=== PATIENT | male | born 1955 | race Caucasian/White ===

== ENCOUNTER 2017-07-12 16:05 | Emergency (ER) | payer OTHER ==
[~2017-07-12] VITALS: Ht 172.7 cm; Wt 88.5 kg
[2017-07-12 16:15] VITALS: BP 138/86
[2017-07-12] MEDS ORDERED: LIDOCAINE 2% 20 ML VIAL. IJ ONE (16:30)
--- NOTE | 2017-07-12 16:33 | PHYS DOC ---
Past Medical History Past Medical History: CAD, High Cholesterol, Hypertension Past Surgical History: Angioplasty, Other Additional Past Surgical Histo: cardiac cath x 5 with 9 stents placed Alcohol Use: None Drug Use: None Adult General Chief Complaint Chief Complaint: ANIMAL BITE HPI HPI Patient is a 62 year old L presents to the emergency department with complaints of a dog bite to the left foot. Patient states that he was putting a shock color on his dog when she nipped at his hand and then began to bite his foot. Dog shots are up-to-date. He has had the dog since it was a puppy. The dog is 6 years old and patient reports that on to be otherwise healthy. Patient complains of a dog bite to the left foot. Review of Systems Review of Systems Constitutional: Denies fever or chills [] Musculoskeletal: Denies back pain or joint pain [] Integument: Dog Bite, laceration Neurologic: Denies headache, focal weakness or sensory changes [] Endocrine: Denies polyuria or polydipsia [] All other systems were reviewed and found to be within normal limits, except as documented in this note. Current Medications Current Medications Current Medications Medications (Trade) Dose Ordered Sig/Delma Start Time Stop Time Status Last Admin Dose Admin Diphtheria/ Tetanus/Acell Pertussis (Boostrix) 0.5 ml ONCE ONCE 07/12/17 16:45 07/12/17 16:46 DC 07/12/17 17:41 0.5 ML Lidocaine HCl 20 ml 1X ONCE 07/12/17 16:30 07/12/17 16:31 DC 07/12/17 17:42 20 ML Allergies Allergies Allergies Coded Allergies Type Severity Reaction Last Updated Verified No Known Drug Allergies 03/09/15 No Physical Exam Physical Exam Constitutional: Well developed, well nourished, no acute distress, non-toxic appearance. [] Skin: Warm, dry, left foot, dorsal aspect, proximal to the great and second toe there is a late laceration with total length of 5 cm. fourth toe does have a 1 cm superficial laceration to the lateral aspect. Toes neurovascular intact distal. Full range of motion of all toes without difficulty. Current Patient Data Vital Signs Vital Signs Date Time Temp Pulse Resp B/P (MAP) Pulse Ox O2 Delivery O2 Flow Rate FiO2 07/12/17 16:15 98.0 77 16 97 Room Air 98.0 EKG EKG [] Radiology/Procedures Radiology/Procedures [] Course & Med Decision Making Course & Med Decision Making Pertinent Labs and Imaging studies reviewed. (See chart for details) Procedure note: Wound anesthetized with 1% lidocaine, total of 8 mL. The wounds were cleansed with Betadine and copiously irrigated, explored for foreign body noted which are noted. Wound edges were approximated with a total of 11 simple interrupted sutures, 3-0 Ethilon. Patient tolerated procedure well. Wound was dressed with bulky bandage. Dragon Disclaimer Dragon Disclaimer This electronic medical record was generated, in whole or in part, using a voice recognition dictation system. Departure Departure Impression: Primary Impression: Dog bite Disposition: HOME, SELF-CARE Condition: STABLE Referrals: LENORA PARKER (PCP) Patient Instructions: Animal Bite, Wound Care, Fhsl-ig-Uhit Scripts Acetaminophen With Codeine (TYLENOL WITH CODEINE #3 TABLET) 1 Each Tablet 1 TAB PO PRN Q6HRS Y for PAIN, #20 TAB Prov: MALISSA PRAKASH APRN 07/12/17 Amoxicillin/Potassium Clav (AMOX TR-K CLV 875-125 MG TAB) 1 Each Tablet 1 TAB PO BID, #20 TAB Prov: MALISSA PRAKASH APRN 07/12/17 Problem Qualifiers Primary Impression: Dog bite Encounter type: initial encounter Qualified Codes: W54.0XXA - Bitten by dog , initial encounter MALISSA PRAKASH APRN Jul 12, 2017 16:33
[2017-07-12] MEDS ORDERED: DIPHTH,PERTUSS(ACELL),TET TOX 0.5 ML DISP.SYRIN. VAX IM ONE (16:45)
[2017-07-12] MEDS ORDERED: ACET-704 PO (17:38)
[2017-07-12] MEDS ORDERED: AMOX1TAB11 PO (17:38)
== END 2017-07-12 17:48 | disposition home or self-care (01) ==
LOC: ER 16:05
DX: S91.352A Open bite, left foot, initial encounter (principal); I25.10 Atherosclerotic heart disease of native coronary artery without angina pectoris; E78.00 Pure hypercholesterolemia, unspecified; I10 Essential (primary) hypertension; Z95.5 Presence of coronary angioplasty implant and graft; W54.0XXA Bitten by dog, initial encounter; Y93.89 Activity, other specified; Y92.89 Other specified places as the place of occurrence of the external cause; Y99.8 Other external cause status
CPT/HCPCS: 12002; 90471; 90715; 99283-25; J2001

== ENCOUNTER 2017-07-23 23:30 | Emergency (ER) | payer OTHER ==
[~2017-07-23 23:30] MED LIST: ACET-704 PO; AMOX1TAB11 PO
--- NOTE | 2017-07-23 23:36 | PHYS DOC ---
Past Medical History Past Medical History: CAD, High Cholesterol, Hypertension Past Surgical History: Angioplasty, Other Additional Past Surgical Histo: cardiac cath x 5 with 9 stents placed Alcohol Use: None Drug Use: None Adult General Chief Complaint Chief Complaint: SUTURE/STAPLE REMOVAL [facility] HPI Patient is a 62 year old male presents to the emergency department with request for suture removal from his left foot. Patient was evaluated in the emergency department on July 12 after he was bitten on the foot by his dog. The wounds were repaired, 11 simple erupted sutures total. Patient's no complaints Review of Systems Review of Systems Constitutional: Denies fever or chills [] Eyes: Denies change in visual acuity, redness, or eye pain [] HENT: Denies nasal congestion or sore throat [] Respiratory: Denies cough or shortness of breath [] Cardiovascular: No additional information not addressed in HPI [] GI: Denies abdominal pain, nausea, vomiting, bloody stools or diarrhea [] : Denies dysuria or hematuria [] Musculoskeletal: Denies back pain or joint pain [] Integument: sutures left foot Neurologic: Denies headache, focal weakness or sensory changes [] Endocrine: Denies polyuria or polydipsia [] All other systems were reviewed and found to be within normal limits, except as documented in this note. Allergies Allergies Allergies Coded Allergies Type Severity Reaction Last Updated Verified No Known Drug Allergies 03/09/15 No Physical Exam Physical Exam Constitutional: Well developed, well nourished, no acute distress, non-toxic appearance. [] Skin: Warm, dry, suture lines well approximated, mild erythema, nontender, no warmth. Full range of motion all digits, NVI Current Patient Data Vital Signs Vital Signs Date Time Temp Pulse Resp B/P (MAP) Pulse Ox O2 Delivery O2 Flow Rate FiO2 07/23/17 23:50 91 20 99 Room Air EKG EKG [] Radiology/Procedures Radiology/Procedures [] Course & Med Decision Making Course & Med Decision Making Pertinent Labs and Imaging studies reviewed. (See chart for details) Suture removal. Area cleansed with NS. Total 11 sutures removed. Wound dressed with neosporin and band aid. Pt tolerated well. [] Dragon Disclaimer Dragon Disclaimer This electronic medical record was generated, in whole or in part, using a voice recognition dictation system. Departure Departure Impression: Primary Impression: Visit for suture removal Disposition: HOME, SELF-CARE Condition: STABLE Referrals: LENORA PARKER (PCP) Patient Instructions: Suture Removal MALISSA PRAKASH APRN Jul 23, 2017 23:36
[2017-07-23 23:50] VITALS: BP 138/85
[2017-07-24] MEDS ORDERED: NEOMY/BACITR/POLYMYXIN OINT PACKET. TP ONE (00:30)
== END 2017-07-24 00:36 | disposition home or self-care (01) ==
LOC: ER 23:30
DX: S91.352D Open bite, left foot, subsequent encounter (principal); E78.00 Pure hypercholesterolemia, unspecified; I10 Essential (primary) hypertension; I25.10 Atherosclerotic heart disease of native coronary artery without angina pectoris; X58.XXXD Exposure to other specified factors, subsequent encounter; Y92.89 Other specified places as the place of occurrence of the external cause
CPT/HCPCS: 99282

== ENCOUNTER → 2020-02-14 | Outpatient (CLI) | payer OTHER, MEDICARE ==
[~2020-02-14] MED LIST changes: +REGADENOSON 0.4 MG/5 ML DISP.SYRIN. IV ONE
--- NOTE | 2020-02-14 14:31 | RAD ---
MR#: [id number] Date of Study: 02/14/2020 Ordering Physician: RAF STRICKLAND, Referring Physician: PERCY OSUNA Tech: RT Geovanni (R) (N) APPROVED REPORT Test Type: Pharmacological Stress Nurse/Tech: Kaia Petersen R.N. Test Indications: CAD, SOA Cardiac History: CAD, 9 stents, COPD, smoker,obese Medications: See Electronic Medical Record Medical History: See Electronic Medical Record Resting ECG: SR w/ occ. pvc Resting Heart Rate: 75 bpm Resting Blood Pressure: 97/48mmHg Pretest Chest Pain: No chest pain Nurse/Tech Notes S1S2, lungs CTA Consent: The procedure was explained to the patient in lay terms. Informed consent was witnessed. Yang eout was entered into [employer]. History and Stress Test performed by EMILY Whitfield Pharm. Details Pharmacologic stress testing was performed using 0.4mg per 5ml of regadenoson given intravenously ove r 7-10 seconds. Stress Symptoms unable to complete treadmill portion as pt was too SOA- had slight c/p scale 1.5/10 after pt sat down post treadmill attempt. pain resolved within 3 minutes-prior to start of lexiscan dose, post lexisc an pt had SOA, MODI POST EXERCISE Reason for Termination: Infusion complete Max HR: 95 bpm Max Blood Pressure: 118/66mmHg Blood Pressure response to exercise: Normal blood pressure response during stress. Heart Rate response to exercise: wnl Chest Pain: Yes. see above note Arrhythmia: No. PVC's at baseline ST Change: No. INTERPRETATION Stress EKG Conclusion: No evidence of stress induced EKG changes. Imaging Protocol IMAGE PROTOCOL: Rest Tc-99m/stress Tc-99m 1 day Rest: Stress: Viability: Radiopharm.Tc99m UlrqljgoaBu75s Sestamibi Okld47lYl 33mCi Duration 15min. 10min. Img Date 02/14/2020 02/14/2020 Inj-Img Nhdl60bhu. 60min. Rest Admin Site:IV - Left AntecubitalAdministrator:EMILY Whitfield Stress Admin Site: IV - Left AntecubitalAdministrator: EMILY Whitfield STRESS DATA End Diast. Vol.102.0mlLVEDV index BSA48.0ml End Syst. Vol.39.0mlLVESV index BSA18.0ml Myocardial Wjke885.0gEject. Liiuuihk69.0% Stress Scores Regional WT0.00Summed WT8.00 Regional WM0.00Summed WM3.00 LV Perfusion There is a small fixed distal anteroseptal defect suggestive of small prior infarct without active is chemia. There is also a moderate sized basal inferolateral defect suggestive of prior infarct without ischemia. Wall Motion Normal wall motion. EF 65% LV Perf. Quant 17 Seg. SSS6.00 17 Seg. SRS2.00 17 Seg. SDS4.00 Stress Defect Extent (% LAD)13.80Rest Defect Extent (% LAD)8.80Rev. Defect Extent (% LAD)5.60 Stress Defect Extent (% LCX) 30.00Rest Defect Extent (% LCX)7.50Rev. Defect Extent (% LCX)26.30 Stress Defect Extent (% RCA)0.00Rest Defect Extent (% RCA)6.70Rev. Defect Extent (% RCA)0.00 Stress Defect Extent (% AZEB)10.70Rest Defect Extent (% AZEB)5.70Rev. Defect Extent (% AZEB)7.00 Other Information Quality:Average Risk Assessment: Moderate Risk Conclusion 1. No evidence of stress induced EKG changes. 2. Poor exercise tolerance as patient unable to complete treadmill, had to be converted to chemical s tress. 3. Fixed distal anterior and basal inferior defects. 4. Normal EF at 65% 5. Moderate risk study Signed by : Fermín Edomnd, Electronically Approved : 02/14/2020 14:31:43
== END | disposition home or self-care (01) ==
LOC: NM 08:54
PROVIDERS: ATTEND Internal Medicine Cardiovascular Disease
DX: I25.10 Atherosclerotic heart disease of native coronary artery without angina pectoris (principal); I10 Essential (primary) hypertension; I48.91 Unspecified atrial fibrillation
CPT/HCPCS: 78452; 93017; A9500; J2785

== ENCOUNTER → 2020-04-18 | Outpatient (CLI) | payer OTHER, MEDICARE ==
[~2020-04-18] MED LIST changes: -REGADENOSON 0.4 MG/5 ML DISP.SYRIN. IV ONE
--- NOTE | 2020-04-18 14:11 | CARD ---
MR#: [id number] Date of Study: 04/18/2020 Ordering Physician: RAF STRICKLAND, Referring Physician: RAF STRICKLAND, Tech: Mya Rodriguez [facility] APPROVED REPORT EXAM: Two-dimensional and M-mode echocardiogram with Doppler and color Doppler. Other Information Quality : Fair INDICATION Dyspnea 2D DIMENSIONS Left Atrium(2D)3.7 (1.6-4.0cm)IVSd0.8 (0.7-1.1cm) Aortic Root(2D)3.0 (2.0-3.7cm)LVDd4.0 (3.9-5.9cm) LVOT Diameter2.3 (1.8-2.4cm)PWd0.8 (0.7-1.1cm) LVDs2.9 (2.5-4.0cm)FS (%) 29.0 % SV39.8 mlLVEF(%)56.3 (>50%) Aortic Valve AoV Peak Sean.138.4cm/sAoV VTI23.8cm AO Peak GR.7.7mmHgLVOT Peak Sean.123.7cm/s AO Mean GR.4mmHgAVA (VMAX)3.58cm2 STAS (VTI)3.34og7SQ P 1/2 Ukrm001fa Mitral Valve MV E Wubmhlre16.2cm/sMV DECEL YBHD370jr MV A Plxolokx662.7cm/sE/A Ratio0.5 Pulmonary Vein S1 Bddmiwsl51.3cm/sD2 Pitkhsuc87.6cm/s LEFT VENTRICLE The left ventricle is normal size. There is normal left ventricular wall thickness. The left ventricu lar systolic function is normal and the ejection fraction is within normal range. The Ejection Fracti on is 55-60%. There is normal LV segmental wall motion. Transmitral Doppler flow pattern is Grade I-a bnormal relaxation pattern. RIGHT VENTRICLE The right ventricle is normal size. The right ventricular systolic function is normal. ATRIA The left atrium size is normal. The right atrium size is normal. The interatrial septum is intact wit h no evidence for an atrial septal defect or patent foramen ovale as noted on 2-D or Doppler imaging. AORTIC VALVE The aortic valve is not well visualized but grossly appears to be trileaflet. Doppler and Color Flow revealed mild aortic regurgitation. There is no significant aortic valvular stenosis. MITRAL VALVE The mitral valve is normal in structure and function. There is no evidence of mitral valve prolapse. There is no mitral valve stenosis. Doppler and Color Flow revealed no mitral valve regurgitation note d. TRICUSPID VALVE The tricuspid valve is normal in structure and function. Doppler and Color Flow revealed no tricuspid valve regurgitation noted. There is no tricuspid valve stenosis. PULMONIC VALVE The pulmonic valve is not well visualized. Doppler and Color Flow revealed no pulmonic valvular regur gitation. There is no pulmonic valvular stenosis. GREAT VESSELS The aortic root is normal in size. The ascending aorta is not well seen. The IVC was not visualized. PERICARDIAL EFFUSION There is no evidence of significant pericardial effusion. Critical Notification Critical Value: No <Conclusion> The left ventricular systolic function is normal and the ejection fraction is within normal range. Th e Ejection Fraction is 55-60%. There is normal LV segmental wall motion. Signed by : Fermín Edmond, Electronically Approved : 04/18/2020 14:11:17
== END | disposition home or self-care (01) ==
LOC: ECHO 12:36
PROVIDERS: ATTEND Internal Medicine Cardiovascular Disease
DX: I35.1 Nonrheumatic aortic (valve) insufficiency (principal); R06.02 Shortness of breath
CPT/HCPCS: 93306

== ENCOUNTER 2021-01-01 15:44 | Emergency (ER) | payer MEDICARE, OTHER ==
[~2021-01-01] VITALS: Ht 172.7 cm; Wt 100.0 kg
[~2021-01-01 15:44] MED LIST changes: +ASPI-886 PO; +ATOR40TA59 PO; +CLOP75TA PO; +FAMO-63 PO; +METO25TA4 PO; +MUPI15CR8 TP
--- NOTE | 2021-01-01 21:54 | RAD ---
US DPLX ARTR EXTREM LOWER BILAT Indication: Reason: BLE redness swelling / Spl. Instructions: / History: Comparison: None. Procedure: Real-time grayscale, color flow Doppler, and Doppler spectral waveform analysis of the art erial system of the lower extremity is performed. Findings: Right lower extremity: Triphasic waveforms throughout the right lower extremity. Mildly elevated [place] within the right common femoral artery measures 174 cm/s. Mild atheromatous plaque. Left lower extremity: Triphasic waveform throughout the left lower extremity. No significant velocity elevation. Mild atheromatous plaque. IMPRESSION: 1. No arterial occlusion. 2. Mildly elevated velocity within the right common femoral artery, may indicate 30-49 percent steno sis. 3. Mild atheromatous plaque. Electronically signed by: Hola Rich DO (01/01/2021 9:52 PM) [facility]
--- NOTE | 2021-01-01 21:55 | RAD ---
US BILATERAL LOWEREXTREMITY VENOUS DOPPLER History: Reason: BLE redness swelling / Spl. Instructions: / History: Comparison: None. Discussion: Multiple longitudinal and transverse high resolution real-time images of the venous system of [facility] lower extremity were obtained with color and Doppler sampling. The common femoral, superficial fem oral, popliteal and proximal calf veins are all patent and demonstrate normal flow and compressibilit y. Normal respiratory phasicity and augmentation is present. Impression: 1. No evidence of deep vein thrombosis. Electronically signed by: Hola Rich DO (01/01/2021 9:52 PM) [facility]
--- NOTE | 2021-01-01 22:42 | PHYS DOC ---
Past Medical History Past Medical History: CAD, High Cholesterol, Hypertension, CO Past Surgical History: Angioplasty, Other Additional Past Surgical Histo: cardiac cath x 5 with 9 stents placed Smoking Status: Current Every Day Smoker Alcohol Use: None Drug Use: None General Adult EDM: Chief Complaint: LOWER EXTREMITY SWELLING HPI: HPI: Patient is a 65 year old male with history of CO, hypertension, CAD, high c holesterol, who presents to the ED today complaining of bilateral lower extremity swelling and redness, symptoms have been going on for 2 days. Patient states he has been painting his house and has been on his feet for more than normal. He is worried he is having no circulation to bilateral feet. He is currently on blood thinners Review of Systems: Review of Systems: Constitutional: Denies fever or chills. [] Eyes: Denies change in visual acuity. [] HENT: Denies nasal congestion or sore throat. [] Respiratory: Denies cough or shortness of breath. [] Cardiovascular: Denies chest pain or edema. [] GI: Denies abdominal pain, nausea, vomiting, bloody stools or diarrhea. [] : Denies dysuria. [] Musculoskeletal: Reports bilateral lower extremity swelling, redness, denies any back pain Integument: Denies rash. [] Neurologic: Denies headache, focal weakness or sensory changes. [] Psychiatric: Denies depression or anxiety. [] Heart Score: C/O Chest Pain: N/A Risk Factors: Risk Factors: DM, Current or recent (<one month) smoker, HTN, HLP, family history of CAD, obesity. Risk Scores: Score 0 - 3: 2.5% MACE over next 6 weeks - Discharge Home Score 4 - 6: 20.3% MACE over next 6 weeks - Admit for Clinical Observation Score 7 - 10: 72.7% MACE over next 6 weeks - Early Invasive Strategies Allergies: Allergies: Allergies Coded Allergies Type Severity Reaction Last Updated Verified No Known Drug Allergies 03/09/15 No Physical Exam: PE: Constitutional: Well developed, well nourished, no acute distress, non-toxic appearance. [] HENT: Normocephalic, atraumatic, bilateral external ears normal, oropharynx moist, no oral exudates, nose normal. [] Eyes: PERRLA, EOMI, conjunctiva normal, no discharge. [] Neck: Normal range of motion, no tenderness, supple, no stridor. [] Cardiovascular:Heart rate regular rhythm, no murmur [] Lungs & Thorax: Bilateral breath sounds clear to auscultation [] Abdomen: Bowel sounds normal, soft, no tenderness, no masses, no pulsatile masses. [] Skin: Warm, dry, no erythema, no rash. [] Back: No tenderness, no CVA tenderness. [] Extremities: No tenderness, no cyanosis, no clubbing, ROM intact, +1 edema to bilateral lower extremities, trace redness noted to bilateral toes. +2 bilateral pedal pulses, cap refill slightly delayed on the right toes but normal on the right toes Neurologic: Alert and oriented X 3, normal motor function, normal sensory function, no focal deficits noted. [] Psychologic: Affect normal, judgement normal, mood normal. [] Current Patient Data: Vital Signs: Vital Signs Date Time Temp Pulse Resp B/P (MAP) Pulse Ox O2 Delivery O2 Flow Rate FiO2 01/01/21 21:14 72 28 130/82 (98) 99 Nasal Cannula 2.0 01/01/21 18:15 97.9 97.9 EKG: EKG: [] Radiology/Procedures: Radiology/Procedures: []PROCEDURE: VENOUS LOWER EXT BILATERAL US BILATERAL LOWEREXTREMITY VENOUS DOPPLER History: Reason: BLE redness swelling / Spl. Instructions: / History: Comparison: None. Discussion: Multiple longitudinal and transverse high resolution real-time images of the venous system of bilateral lower extremity were obtained with color and Doppler sampling. The common femoral, superficial femoral, popliteal and proximal calf veins are all patent and demonstrate normal flow and compressibility. Normal respiratory phasicity and augmentation is present. Impression: 1. No evidence of deep vein thrombosis. Electronically signed by: Hola Gutierrez DO (01/01/2021 9:52 PM) [facility] DICTATED and SIGNED BY: HOLA GUTIERREZ DO DATE: 01/01/21 [id number] PROCEDURE: ARTERIAL STUDY LOWER EXT BI US DPLX ARTR EXTREM LOWER BILAT Indication: Reason: BLE redness swelling / Spl. Instructions: / History: Comparison: None. Procedure: Real-time grayscale, color flow Doppler, and Doppler spectral waveform analysis of the arterial system of the lower extremity is performed. Findings: Right lower extremity: Triphasic waveforms throughout the right lower extremity. Mildly elevated velocity within the right common femoral artery measures 174 cm/s. Mild atheromatous plaque. Left lower extremity: Triphasic waveform throughout the left lower extremity. No significant velocity elevation. Mild atheromatous plaque. IMPRESSION: 1. No arterial occlusion. 2. Mildly elevated velocity within the right common femoral artery, may indicate 30-49 percent stenosis. 3. Mild atheromatous plaque. Electronically signed by: Hola Gutierrez DO (01/01/2021 9:52 PM) [facility] DICTATED and SIGNED BY: HOLA GUTIERREZ DO DATE: 01/01/21 [id number] 0 Course & Med Decision Making: Course & Med Decision Making Pertinent Labs and Imaging studies reviewed. (See chart for details) This is a 65-year-old male patient presenting to the ED today complaining of bilateral lower extremity swelling, redness, symptoms since yesterday after spending longer. Of time painting his house. Patient is worried he has no circulation in his lower extremities. He has +2 pedal pulses bilaterally. Venous Doppler of bilateral lower extremities are negative. Arterial Dopplers of bilateral lower extremities were noted for stenosis of 30 to 49% on the right f common femoral artery. Mild atheromatous plaques Patient was discharged to home, follow-up with vascular. Compression stockings recommended. He is currently on a blood thinner. Encouraged to stay off his feet Dragon Disclaimer: Dragrachelle Disclaimer: This electronic medical record was generated, in whole or in part, using a voice recognition dictation system. Departure Departure Impression: Primary Impression: Stenosis of artery of left lower extremity Additional Impressions: Edema Qualified Codes: R60.9 - Edema, unspecified PVD (peripheral vascular disease) Disposition: 01 HOME / SELF CARE / HOMELESS Condition: STABLE Referrals: NO PCP (PCP) BASILIA MELGAR II, MD follow up in one week Patient Instructions: Edema, Itsz-ys-Pmcm, Peripheral Vascular Disease, Uhlj-xw-Flfg Additional Instructions: You were evaluated in the emergency room and noted to have stenosis on your right lower extremity and plaques. Please follow-up with your vascular surgeon as well your primary care doctor and cardiology PURA COOK APRN January 01, 2021 22:42
[2021-01-01 22:56] VITALS: BP 128/80
== END 2021-01-01 23:04 | disposition home or self-care (01) ==
LOC: ER 15:44
DX: I70.202 Unspecified atherosclerosis of native arteries of extremities, left leg (principal); E78.00 Pure hypercholesterolemia, unspecified; I10 Essential (primary) hypertension; I25.10 Atherosclerotic heart disease of native coronary artery without angina pectoris; I25.2 Old myocardial infarction; F17.200 Nicotine dependence, unspecified, uncomplicated; Z95.5 Presence of coronary angioplasty implant and graft
CPT/HCPCS: 93923; 93970; 99285-25

== ENCOUNTER 2021-08-13 17:19 | Inpatient (IN) | payer MEDICARE, OTHER ==
[~2021-08-13] VITALS: Ht 172.7 cm; Wt 111.1 kg
[~2021-08-13 17:19] MED LIST changes: +CALC200T3 PO; +FAMO40TA4 PO
[2021-08-13] MEDS ORDERED: NITROGLYCERIN SUBLINGUAL 0.4 MG BOTTLE OF 25. SL ONE (17:32)
[2021-08-13 17:38] LABS: BASO # 0.1 x10^3/uL (0.0-0.2); BASO % 1 % (0-3); EOS # 0.2 x10^3/uL (0.0-0.7); EOS % 4 % (0-3); HEMATOCRIT 41.5 % (39.0-53.0); HEMOGLOBIN 13.9 g/dL (13.0-17.5); LYMPH # 1.6 x10^3/uL (1.0-4.8); LYMPH % 31 % (24-48); MEAN CORPUSCULAR HEMOGLOBIN 29 pg (25-35); MEAN CORPUSCULAR HGB CONC 34 g/dL (31-37); MEAN CORPUSCULAR VOLUME 86 fL (79-100); MONO # 0.6 x10^3/uL (0.0-1.1); MONO % 11 % (0-9); NEUT # 2.8 x10^3/uL (1.8-7.7); NEUT % 53 % (31-73); PLATELET COUNT 256 x10^3/uL (140-400); RED BLOOD COUNT 4.83 x10^6/uL (4.30-5.70); RED CELL DISTRIBUTION WIDTH 13.9 % (11.5-14.5); WHITE BLOOD COUNT 5.3 x10^3/uL (4.0-11.0)
--- NOTE | 2021-08-13 17:44 | PHYS DOC ---
Past Medical History Past Medical History: CAD, High Cholesterol, Hypertension, CO Additional Past Medical Histor: NSTEMI,PVD Past Surgical History: Angioplasty, Other Additional Past Surgical Histo: cardiac cath x 5 with 9 stents placed Smoking Status: Current Every Day Smoker Alcohol Use: None Drug Use: None General Adult EDM: Chief Complaint: CHEST PAIN HPI: HPI: Patient is a 66 year old male who present to ER for evaluation of substernal chest pain that radiated to his arm. Symptoms started at 10 AM this morning. Patient denies any cough or fever, no trouble breathing. Patient denies history of coronary artery disease in the past, had multiple stents in the past. Patient is on blood thinner, plavix. Patient denies any recent travel operation. Patient is vaccinated for COVID-19. Patient denies any exposure to anybody with COVID-19 infection Review of Systems: Review of Systems: Constitutional: Denies fever or chills. [] Eyes: Denies change in visual acuity. [] HENT: Denies nasal congestion or sore throat. [] Respiratory: Denies cough or shortness of breath. [] Cardiovascular: Positive for chest pain, no edema GI: Denies abdominal pain, nausea, vomiting, bloody stools or diarrhea. [] : Denies dysuria. [] Musculoskeletal: Denies back pain or joint pain. [] Integument: Denies rash. [] Neurologic: Denies headache, focal weakness or sensory changes. [] Endocrine: Denies polyuria or polydipsia. [] Lymphatic: Denies swollen glands. [] Psychiatric: Denies depression or anxiety. [] Heart Score: C/O Chest Pain: Yes HEART Score for Chest Pain: HEART Score for Chest Pain Response (Comments) Value History Highly Suspicious 2 ECG Nonspecific Repolarizatio 1 Age > 65 2 Risk Factors >3 Risk Factors or Hx CAD 2 Troponin < Normal Limit 0 Total 7 Risk Factors: Risk Factors: DM, Current or recent (<one month) smoker, HTN, HLP, family history of CAD, obesity. Risk Scores: Score 0 - 3: 2.5% MACE over next 6 weeks - Discharge Home Score 4 - 6: 20.3% MACE over next 6 weeks - Admit for Clinical Observation Score 7 - 10: 72.7% MACE over next 6 weeks - Early Invasive Strategies Current Medications: Current Medications Medications (Trade) Dose Ordered Sig/Delma Start Time Stop Time Status Last Admin Dose Admin Nitroglycerin (Nitrostat) 0.4 mg STK-MED ONCE 08/13/21 17:32 08/13/21 17:32 DC Allergies: Allergies: Allergies Coded Allergies Type Severity Reaction Last Updated Verified No Known Drug Allergies 03/09/15 No Physical Exam: PE: Constitutional: Well developed, well nourished, no acute distress, non-toxic appearance. [] HENT: Normocephalic, atraumatic, bilateral external ears normal, oropharynx moist, no oral exudates, nose normal. [] Eyes: PERRLA, EOMI, conjunctiva normal, no discharge. [] Neck: Normal range of motion, no tenderness, supple, no stridor. [] Cardiovascular:Heart rate regular rhythm, no murmur [] Lungs & Thorax: Bilateral breath sounds clear to auscultation [] Abdomen: Bowel sounds normal, soft, no tenderness, no masses, no pulsatile masses. [] Skin: Warm, dry, no erythema, no rash. [] Back: No tenderness, no CVA tenderness. [] Extremities: No tenderness, no cyanosis, no clubbing, ROM intact, no edema. [] Neurologic: Alert and oriented X 3, normal motor function, normal sensory function, no focal deficits noted. [] Psychologic: Affect normal, judgement normal, mood normal. [] Current Patient Data: Labs: Laboratory Tests Test 08/13/21 17:25 White Blood Count 5.3 x10^3/uL Red Blood Count 4.83 x10^6/uL Hemoglobin 13.9 g/dL Hematocrit 41.5 % Mean Corpuscular Volume 86 fL Mean Corpuscular Hemoglobin 29 pg Mean Corpuscular Hemoglobin Concent 34 g/dL Red Cell Distribution Width 13.9 % Platelet Count 256 x10^3/uL Neutrophils (%) (Auto) 53 % Lymphocytes (%) (Auto) 31 % Monocytes (%) (Auto) 11 % Eosinophils (%) (Auto) 4 % Basophils (%) (Auto) 1 % Neutrophils # (Auto) 2.8 x10^3/uL Lymphocytes # (Auto) 1.6 x10^3/uL Monocytes # (Auto) 0.6 x10^3/uL Eosinophils # (Auto) 0.2 x10^3/uL Basophils # (Auto) 0.1 x10^3/uL Sodium Level 139 mmol/L Potassium Level 4.0 mmol/L Chloride Level 103 mmol/L Carbon Dioxide Level 29 mmol/L Anion Gap 7 Blood Urea Nitrogen 13 mg/dL Creatinine 0.8 mg/dL Estimated GFR (Cockcroft-Gault) 96.7 BUN/Creatinine Ratio 16 Glucose Level 160 mg/dL Calcium Level 8.8 mg/dL Magnesium Level 2.0 mg/dL Total Bilirubin 0.2 mg/dL Aspartate Amino Transf (AST/SGOT) 33 U/L Alanine Aminotransferase (ALT/SGPT) 56 U/L Alkaline Phosphatase 155 U/L Troponin I High Sensitivity 36 ng/L KR-Epv-M-Type Natriuretic Peptide 355 pg/mL Total Protein 7.7 g/dL Albumin 3.5 g/dL Albumin/Globulin Ratio 0.8 Lipase 66 U/L Current Medications Medications (Trade) Dose Ordered Sig/Delma Route PRN Reason Start Time Stop Time Status Last Admin Dose Admin Nitroglycerin (Nitrostat) 0.4 mg PRN Q5MIN PRN SL CHEST PAIN 08/13/21 17:45 08/13/21 17:30 Nitroglycerin (Nitrostat) 0.4 mg STK-MED ONCE SL 08/13/21 17:32 08/13/21 17:32 DC Laboratory Tests Test 08/13/21 17:25 White Blood Count 5.3 x10^3/uL Red Blood Count 4.83 x10^6/uL Hemoglobin 13.9 g/dL Hematocrit 41.5 % Mean Corpuscular Volume 86 fL Mean Corpuscular Hemoglobin 29 pg Mean Corpuscular Hemoglobin Concent 34 g/dL Red Cell Distribution Width 13.9 % Platelet Count 256 x10^3/uL Neutrophils (%) (Auto) 53 % Lymphocytes (%) (Auto) 31 % Monocytes (%) (Auto) 11 % Eosinophils (%) (Auto) 4 % Basophils (%) (Auto) 1 % Neutrophils # (Auto) 2.8 x10^3/uL Lymphocytes # (Auto) 1.6 x10^3/uL Monocytes # (Auto) 0.6 x10^3/uL Eosinophils # (Auto) 0.2 x10^3/uL Basophils # (Auto) 0.1 x10^3/uL Sodium Level 139 mmol/L Potassium Level 4.0 mmol/L Chloride Level 103 mmol/L Carbon Dioxide Level 29 mmol/L Anion Gap 7 Blood Urea Nitrogen 13 mg/dL Creatinine 0.8 mg/dL Estimated GFR (Cockcroft-Gault) 96.7 BUN/Creatinine Ratio 16 Glucose Level 160 mg/dL Calcium Level 8.8 mg/dL Magnesium Level 2.0 mg/dL Total Bilirubin 0.2 mg/dL Aspartate Amino Transf (AST/SGOT) 33 U/L Alanine Aminotransferase (ALT/SGPT) 56 U/L Alkaline Phosphatase 155 U/L Troponin I High Sensitivity 36 ng/L XO-Mew-F-Type Natriuretic Peptide 355 pg/mL Total Protein 7.7 g/dL Albumin 3.5 g/dL Albumin/Globulin Ratio 0.8 Lipase 66 U/L Current Medications Medications (Trade) Dose Ordered Sig/Delma Route PRN Reason Start Time Stop Time Status Last Admin Dose Admin Nitroglycerin (Nitrostat) 0.4 mg PRN Q5MIN PRN SL CHEST PAIN 08/13/21 17:45 08/13/21 17:30 Nitroglycerin (Nitrostat) 0.4 mg STK-MED ONCE SL 08/13/21 17:32 08/13/21 17:32 DC Vital Signs: Vital Signs Date Time Temp Pulse Resp B/P (MAP) Pulse Ox O2 Delivery O2 Flow Rate FiO2 08/13/21 17:30 92 192/108 EKG: EKG: EKG was done at 1724, heart rate of 95 bpm, sinus rhythm, no ST segment elevation. Radiology/Procedures: Radiology/Procedures: [] Course & Med Decision Making: Course & Med Decision Making Pertinent Labs and Imaging studies reviewed. (See chart for details) Patient is a 66-year-old male who present to ER due to chest pain, patient does have history of coronary disease, first EKG was done at 1724, heart rate 95 bpm, sinus rhythm, no ST segment elevation appreciated. Second EKG was done at 1744, heart rate of 91 bpm, sinus rhythm, there is some ST segment elevation in lead II and I, I discussed with the mid level provider nuclear fuels reclamation engineer, Dr. PRICE who did review the EKG and did not think that patient met criteria for STEMI. He recommended admit patient to the hospital, start patient on heparin protocol. Discussed with Dr. Polanco who agreed to admit the patient. Dragon Disclaimer: Dragon Disclaimer: This electronic medical record was generated, in whole or in part, using a voice recognition dictation system. Departure Departure Impression: Primary Impression: Chest pain Additional Impression: Acute coronary syndrome Disposition: ADMITTED INPATIENT Admitting Physician: DAYRON (DR. POLANCO) Condition: IMPROVED Referrals: NO PCP (PCP) ANGELIA FREDERICK DO Aug 13, 2021 17:44
[2021-08-13] MEDS ORDERED: NITROGLYCERIN SUBLINGUAL 0.4 MG BOTTLE OF 25. SL PRN (17:45)
[2021-08-13 17:49] LABS: CALCIUM 8.8 mg/dL (8.5-10.1); CREATININE 0.8 mg/dL (0.7-1.3); GFR 96.7
[2021-08-13 17:55] LABS: ALBUMIN 3.5 g/dL (3.4-5.0); ALBUMIN/GLOBULIN RATIO 0.8 (1.0-1.7); TOTAL BILIRUBIN 0.2 mg/dL (0.2-1.0); TOTAL PROTEIN 7.7 g/dL (6.4-8.2)
--- NOTE | 2021-08-13 18:08 | RAD ---
Single AP view of the chest. Comparison: 03/23/2021. Indication: Chest pain Findings: The heart is enlarged but stable. There is no pneumothorax or effusion. No air space or interstitial disease. Impression: 1. No acute cardiopulmonary process. Electronically signed by: Richar Rendon MD (08/13/2021 6:05 PM) [facility]
[2021-08-13] MEDS ORDERED: HEPARIN for IV BOLUS 10,000 UNIT/10 ML VIAL. IV PRN (18:15)
[2021-08-13] MEDS ORDERED: HEPARIN for IV BOLUS 10,000 UNIT/10 ML VIAL. IV ONE (18:15)
--- NOTE | 2021-08-13 18:16 | PDOC1 ---
History and Physical Date of Admission Date of Admission DATE: 08/13/21 TIME: 18:15 Identification/Chief Complaint Chief Complaint Chest pain Source Source: Patient History of Present Illness History of Present Illness Mr Noland is a 66 year old male with PMHx CAD (s/p cath x5 with 9 stents), HLD, HTN, PVD, smoker who presents to ED c/o sub-sternal chest pain that radiates down both of his arms that began at 1645 while at rest and was continuous, He notes this was similar to prior DC. He experienced some discomfort at 1000 this morning but it resolved on its own. He does intermittently experience anginal pain but it is generally remitting without treatment 1-3 times per month. Patient denies any cough or fever, no trouble breathing. Patient is vaccinated for COVID-19. He does continue to smoke. Chest radiograph with cardiomegaly, otherwise no acute abnormalities. EKG heart rate of 95 bpm, sinus rhythm, no ST segment elevation. Second EKG was done at 1744, heart rate of 91 bpm, sinus rhythm, there is some ST segment elevation in lead II and I. Labs with WBC 5.3, Hb 13.9, platelets 256, INR 0.9, PTT 32, NA 139, K4, BUN 13, CR 0.8, glucose 160, calcium 8.8, Magnesium 2, alkaline phosphatase 135 lipase 66 otherwise LFTs within normal laboratory limits, NT proBNP is 335, high- sensitivity troponin was 36. Given NTG x3 with improvement in pain from 8/10 to 2/10 and started on heparin GTT and admitted for further care. Past Medical History Cardiovascular: CAD, CHF, HTN, Hyperlipidemia Past Surgical History Past Surgical History: Other Family History Family History: Coronary Artery Disease, High Cholestrol, Hypertension Social History Smoke: <1 pack per day ALCOHOL: none Drugs: None Current Problem List Problem List Problems Medical Problems: (1) Acute coronary syndrome Status: Acute (2) Chest pain Status: Acute Current Medications Current Medications Current Medications Nitroglycerin (Nitrostat) 0.4 mg PRN Q5MIN PRN SL CHEST PAIN Last administered on 08/13/21at 17:30; Start 08/13/21 at 17:45 Nitroglycerin (Nitrostat) 0.4 mg STK-MED ONCE SL ; Start 08/13/21 at 17:32; Stop 08/13/21 at 17:32; Status DC Heparin Sodium (Porcine) (Heparin Sodium) 4,000 unit 1X ONCE IV ; Start 08/13/21 at 18:15; Stop 08/13/21 at 18:16 Heparin Sodium/ Dextrose 250 ml @ 12.24 mls/ hr CONT PRN IV PER PROTOCOL; Start 08/13/21 at 18:15 Heparin Sodium (Porcine) (Heparin Sodium) 2,550 unit PRN Q6HRS PRN IV FOR UFH LEVEL LESS THAN 0.2; Start 08/13/21 at 18:15 Active Scripts Active Clopidogrel (Clopidogrel Bisulfate) 75 Mg Tablet 75 Mg PO DAILYWBKFT Aspirin Ec (Aspirin) 81 Mg Tablet.dr 81 Mg PO DAILYWBKFT 90 Days Reported Famotidine 40 Mg Tablet 40 Mg PO PRN DAILY PRN Tums (Calcium Carbonate) 200 Mg Tab.chew 200 Mg PO PRN 1-2XD PRN Atorvastatin Calcium 40 Mg Tablet 1 Tab PO DAILY Metoprolol Tartrate 25 Mg Tablet 1 Tab PO BID Allergies Allergies: Coded Allergies: No Known Drug Allergies (Unverified , 03/09/15) ROS General: YES: Fatigue, Malaise; No: Chills, Night Sweats, Appetite, Other PSYCHOLOGICAL ROS: YES: Anxiety; No: Behavioral Disorder, Concentration difficultie, Decreased libido, Depression, Disorientation, Hallucinations, Hostility, Irritablity, Memory difficulties, Mood Swings, Obsessive thoughts, Physical abuse, Sexual abuse, Sleep disturbances, Suicidal ideation, Other Eyes: No Blurry vision, No Decreased vision, No Double vision, No Dry eyes, No Excessive tearing, No Eye Pain, No Itchy Eyes, No Loss of vision, No Phot ophobia, No Scotomata, No Uses contacts, No Uses glasses, No Other HEENT: No: Heacaches, Visual Changes, Hearing change, Nasal congestion, Nasal discharge, Oral lesions, Sinus pain, Sore Throat, Epistaxis, Sneezing, Snoring, Tinnitus, Vertigo, Vocal changes, Other ALLERGY AND IMMUNOLOGY: No: Hives, Insect Bite Sensitivity, Itchy/Watery Eyes, Nasal Congestion, Post Nasal Drip, Seasonal Allergies, Other Hematological and Lymphatic: No: Bleeding Problems, Blood Clots, Blood Transfusions, Brusing, Night Sweats, Pallor, Swollen Lymph Nodes, Other ENDOCRINE: No: Breast Changes, Galactorrhea, Hair Pattern Changes, Hot Flashes, Malaise/lethargy, Mood Swings, Palpitations, Polydipsia/polyuria, Skin Changes, Temperature Intolerance, Unexpected Weight Changes, Other Breast: No New/Changing Breast Lumps, No Nipple changes, No Nipple discharge, No Other Respiratory: YES: Shortness of breath; No: Cough, Hemoptysis, Orthopnea, Pleuritic Pain, SOB with excertion, Sputum Changes, Stridor, Tachypnea, Wheezing, Other Cardiovascular: yes Chest Pain; No Palpitations, No Orthopnea, No Paroxysmal Noc. Dyspnea, No Edema, No Lt Headedness, No Other Gastrointestinal: Yes Nausea; No Vomiting, No Abdominal Pain, No Diarrhea, No Constipation, No Melena, No Hematochezia, No Other Genitourinary: No Dysuria, No Frequency, No Incontinence, No Hematuria, No Retention, No Discharge, No Urgency, No Pain, No Flank Pain, No Other, No , No , No , No , No , No , No Musculoskeletal: No Gait Disturbance, No Joint Pain, No Joint Stiffness, No Joint Swelling, No Muscle Pain, No Muscular Weakness, No Pain In:, No Swelling In:, No Other Neurological: No Behavorial Changes, No Bowel/Bladder ControlChng, No Confusion, No Dizziness, No Gait Disturbance, No Headaches, No Impaired Coord/balance, No Memory Loss, No Numbness/Tingling, No Seizures, No Speech Problems, No Tremors, No Visual Changes, No Weakness, No Other Skin: No Dry Skin, No Eczema, No Hair Changes, No Lumps, No Mole Changes, No Mottling, No Nail Changes, No Pruritus, No Rash, No Skin Lesion Changes, No Other, No Acne Physical Exam General: Alert, Oriented X3, Cooperative, moderate distress HEENT: Atraumatic, PERRLA, EOMI, Mucous membr. moist/pink Lungs: Clear to auscultation, Normal air movement Heart: S1S2, RRR, no thrills, no rubs, no gallops, no murmurs Abdomen: Normal bowel sounds, Soft, No tenderness, No hepatosplenomegaly, No masses Rectal Exam: not examined Extremities: No clubbing, No cyanosis, No edema, Normal pulses, No tenderness/swelling Skin: No rashes, No breakdown, No significant lesion Neuro: Normal gait, Normal speech, Strength at 5/5 X4 ext, Normal tone, Sensation intact, Cranial nerves 3-12 NL, Reflexes 2+ Psych/Mental Status: Mental status NL, Mood NL Vitals Vitals Vital Signs Date Time Temp Pulse Resp B/P (MAP) Pulse Ox O2 Delivery O2 Flow Rate FiO2 08/13/21 17:30 92 192/108 08/13/21 17:19 97.7 18 100 Room Air 97.7 Labs Labs Laboratory Tests Test 08/13/21 17:25 White Blood Count 5.3 x10^3/uL (4.0-11.0) Red Blood Count 4.83 x10^6/uL (4.30-5.70) Hemoglobin 13.9 g/dL (13.0-17.5) Hematocrit 41.5 % (39.0-53.0) Mean Corpuscular Volume 86 fL (79-100) Mean Corpuscular Hemoglobin 29 pg (25-35) Mean Corpuscular Hemoglobin Concent 34 g/dL (31-37) Red Cell Distribution Width 13.9 % (11.5-14.5) Platelet Count 256 x10^3/uL (140-400) Neutrophils (%) (Auto) 53 % (31-73) Lymphocytes (%) (Auto) 31 % (24-48) Monocytes (%) (Auto) 11 % (0-9) Eosinophils (%) (Auto) 4 % (0-3) Basophils (%) (Auto) 1 % (0-3) Neutrophils # (Auto) 2.8 x10^3/uL (1.8-7.7) Lymphocytes # (Auto) 1.6 x10^3/uL (1.0-4.8) Monocytes # (Auto) 0.6 x10^3/uL (0.0-1.1) Eosinophils # (Auto) 0.2 x10^3/uL (0.0-0.7) Basophils # (Auto) 0.1 x10^3/uL (0.0-0.2) Sodium Level 139 mmol/L (136-145) Potassium Level 4.0 mmol/L (3.5-5.1) Chloride Level 103 mmol/L (98-107) Carbon Dioxide Level 29 mmol/L (21-32) Anion Gap 7 (6-14) Blood Urea Nitrogen 13 mg/dL (8-26) Creatinine 0.8 mg/dL (0.7-1.3) Estimated GFR (Cockcroft-Gault) 96.7 BUN/Creatinine Ratio 16 (6-20) Glucose Level 160 mg/dL (70-99) Calcium Level 8.8 mg/dL (8.5-10.1) Magnesium Level 2.0 mg/dL (1.8-2.4) Total Bilirubin 0.2 mg/dL (0.2-1.0) Aspartate Amino Transf (AST/SGOT) 33 U/L (15-37) Alanine Aminotransferase (ALT/SGPT) 56 U/L (16-63) Alkaline Phosphatase 155 U/L (46-116) Troponin I High Sensitivity 36 ng/L (4-75) WP-Eqc-Z-Type Natriuretic Peptide 355 pg/mL (0-124) Total Protein 7.7 g/dL (6.4-8.2) Albumin 3.5 g/dL (3.4-5.0) Albumin/Globulin Ratio 0.8 (1.0-1.7) Lipase 66 U/L (73-393) Laboratory Tests Test 08/13/21 17:25 White Blood Count 5.3 x10^3/uL (4.0-11.0) Red Blood Count 4.83 x10^6/uL (4.30-5.70) Hemoglobin 13.9 g/dL (13.0-17.5) Hematocrit 41.5 % (39.0-53.0) Mean Corpuscular Volume 86 fL (79-100) Mean Corpuscular Hemoglobin 29 pg (25-35) Mean Corpuscular Hemoglobin Concent 34 g/dL (31-37) Red Cell Distribution Width 13.9 % (11.5-14.5) Platelet Count 256 x10^3/uL (140-400) Neutrophils (%) (Auto) 53 % (31-73) Lymphocytes (%) (Auto) 31 % (24-48) Monocytes (%) (Auto) 11 % (0-9) Eosinophils (%) (Auto) 4 % (0-3) Basophils (%) (Auto) 1 % (0-3) Neutrophils # (Auto) 2.8 x10^3/uL (1.8-7.7) Lymphocytes # (Auto) 1.6 x10^3/uL (1.0-4.8) Monocytes # (Auto) 0.6 x10^3/uL (0.0-1.1) Eosinophils # (Auto) 0.2 x10^3/uL (0.0-0.7) Basophils # (Auto) 0.1 x10^3/uL (0.0-0.2) Sodium Level 139 mmol/L (136-145) Potassium Level 4.0 mmol/L (3.5-5.1) Chloride Level 103 mmol/L (98-107) Carbon Dioxide Level 29 mmol/L (21-32) Anion Gap 7 (6-14) Blood Urea Nitrogen 13 mg/dL (8-26) Creatinine 0.8 mg/dL (0.7-1.3) Estimated GFR (Cockcroft-Gault) 96.7 BUN/Creatinine Ratio 16 (6-20) Glucose Level 160 mg/dL (70-99) Calcium Level 8.8 mg/dL (8.5-10.1) Magnesium Level 2.0 mg/dL (1.8-2.4) Total Bilirubin 0.2 mg/dL (0.2-1.0) Aspartate Amino Transf (AST/SGOT) 33 U/L (15-37) Alanine Aminotransferase (ALT/SGPT) 56 U/L (16-63) Alkaline Phosphatase 155 U/L (46-116) Troponin I High Sensitivity 36 ng/L (4-75) CG-Iyn-D-Type Natriuretic Peptide 355 pg/mL (0-124) Total Protein 7.7 g/dL (6.4-8.2) Albumin 3.5 g/dL (3.4-5.0) Albumin/Globulin Ratio 0.8 (1.0-1.7) Lipase 66 U/L (73-393) Images Images Chest radiograph: The heart is enlarged but stable. There is no pneumothorax or effusion. No air space or interstitial disease. Impression: 1. No acute cardiopulmonary process. VTE Prophylaxis Ordered VTE Prophylaxis Devices: Yes VTE Pharmacological Prophylaxi: Yes Assessment/Plan Assessment/Plan A/P: Chest pain - with repeat EKG showing changes, will cont heparin GTT, trend troponins. consult cardiology. Smoking cessation emphasized. Will give nitropaste q6hrs for unstable angina. Protonix for GI PPX CAD - s/p cath x5 with 9 stents - high risk repeat DC HLD - statin HTN - metoprolol, nitropaste PVD - on ASA, plavix Smoker - counseled on cessation FEN - NPO PPX - heparin FULL CODE Dispo - inpatient CVC for unstable angina Justifications for Admission Other Justification GENA LUNA MD Aug 13, 2021 18:16
[2021-08-13 18:23] LABS: PROTHROMBIN TIME PATIENT 11.8 SEC (11.7-14.0)
[2021-08-13] MEDS ORDERED: MORPHINE SULFATE 2 MG/ML INJ. IVP PRN (18:30)
[2021-08-13] MEDS ORDERED: ONDANSETRON PF 4 MG/2 ML VIAL. IVP PRN ×2 (18:30→21:30)
[2021-08-13] MEDS: HEPARIN 25,000UTS/250ML PREMIX 250 ML IV PRN (18:51)
[2021-08-13] MEDS ORDERED: NITROGLYCERIN OINT 1 GM PACKET. TP ONE (19:45)
[2021-08-13] MEDS ORDERED: PANTOPRAZOLE 40 MG TABLET.DR. PO ONE (20:29)
[2021-08-13] MEDS: PANTOPRAZOLE 40 MG TABLET.DR. PO SCH (20:35)
[2021-08-13] MEDS ORDERED: ACETAMINOPHEN 325 MG TABLET. PO PRN (21:30)
[2021-08-13] MEDS: METOPROLOL TART IMMED RELEASE 25 MG TABLET. PO SCH (22:00)
[2021-08-13] MEDS: ATORVASTATIN CALCIUM 40 MG TABLET. PO SCH (22:00)
[2021-08-13 23:10] VITALS: BP 121/78
[2021-08-14] VITALS (18 sets, daily range): BP systolic 99–141; BP diastolic 54–82
[2021-08-14] MEDS: fentaNYL PF VIAL 100 MCG/2 ML VIAL IVP PRN ×4 (00:10→19:59)
--- NOTE | 2021-08-14 02:02 | EKG ---
[facility] [address] [place] [address] Test Date: 2021-08-13 Test Time: 17:44:41 Pat Name: MICHAEL MEZA Department: Room: [facility] Gender: M Dent Remover: : 1955 Requested By: ANGELIA FREDERICK Order Number: [id number] Reading MD: Eleno Critsina Measurements Intervals [place] Rate: 91 P: 139 GA: 154 QRS: -145 QRSD: 106 T: 126 QT: 368 QTc: 454 Interpretive Statements SINUS RHYTHM ST & T ABNORMALITY, CONSIDER HIGH LATERAL MYOCARDIAL OR PERICARDIAL DAMAGE ABNORMAL ECG Electronically Signed On 08-16-2021 15:15:34 INSULATION SPRAYER by Eleno Cristina
--- NOTE | 2021-08-14 02:02 | EKG ---
[facility] [address] [place] [address] Test Date: 2021-08-13 Test Time: 20:16:56 Pat Name: MICHAEL MEZA Department: Room: [facility] Gender: M Front Clerk: : 1955 Requested By: ANGELIA FREDERICK Order Number: [id number] Reading MD: Eleno Cristina Measurements Intervals [place] Rate: 77 P: 39 [place]: 146 QRS: -36 QRSD: 108 T: 50 QT: 386 QTc: 439 Interpretive Statements SINUS RHYTHM LEFT ATRIAL ABNORMALITY LEFT ANTERIOR FASCICULAR BLOCK Electronically Signed On 08-16-2021 15:13:30 BAKERY DECORATOR by Eleno Cristina
[2021-08-14] MEDS: NITROGLYCERIN OINT 1 GM PACKET. TP SCH ×4 (02:38→19:59)
[2021-08-14] MEDS: ASPIRIN ENTERIC COATED 325 MG TABLET.DR. PO SCH (08:36)
[2021-08-14] MEDS: PANTOPRAZOLE 40 MG TABLET.DR. PO SCH (08:36)
[2021-08-14] MEDS: NICOTINE 21MG PATCH. TD SCH (08:40)
[2021-08-14] MEDS ORDERED: PANTOPRAZOLE 40 MG TABLET.DR. PO SCH (09:00)
--- NOTE | 2021-08-14 09:28 | PDOC2 ---
ERNESTINA NIELSEN CHRONIC CARE NURSE 08/14/21 0928: CARDIAC CONSULT DATE OF CONSULT Date of Consult DATE: 08/14/21 TIME: :22 REASON FOR CONSULT Reason for Consult: Chest pain REFERRING PHYSICIAN Referring Physician: Toni SOURCE Source: Chart review, Patient HISTORY OF PRESENT ILLNESS HISTORY OF PRESENT ILLNESS This is a pleasant 66 yo male admitted for complains of chest pain. Reports of COE. Has been having sensation of indigestion but no nausea or vomiting. Denies any palpitations but has been having stabbing chest pain that radiates to his jaw and arms. No recent falls or injury. No flu like symptoms and has been fully vaccinated for covid-19. Has been ASA but has not been taking plavix and statin for over a year and just decided to stop taking it. He follows with Dr. Dorman. He continues to smoke tobacco as well. PAST MEDICAL HISTORY Cardiovascular: CAD, HTN, Hyperlipidemia Pulmonary: No pertinent hx CENTRAL NERVOUS SYSTEM: Other (No pertinent history) GI: GERD Heme/Onc: No pertinent hx Psych: No pertinent hx Musculoskeletal: Osteoarthritis Infectious disease: No pertinent hx ENT: No pertinent hx Renal/: No pertinent hx PAST SURGICAL HISTORY Past Surgical History: Other (PCI) FAMILY HISTORY Family History: Coronary Artery Disease SOCIAL HISTORY Smoke: <1 pack per day ALCOHOL: none Drugs: None Lives: with Family CURRENT MEDICATIONS CURRENT MEDICATIONS Current Medications Medications (Trade) Dose Ordered Sig/Delma Route PRN Reason Start Time Stop Time Status Last Admin Dose Admin Nitroglycerin (Nitrostat) 0.4 mg PRN Q5MIN PRN SL CHEST PAIN 08/13/21 17:45 08/13/21 17:30 Heparin Sodium (Porcine) (Heparin Sodium) 4,000 unit 1X ONCE IV 08/13/21 18:15 08/13/21 18:16 DC 08/13/21 18:52 Heparin Sodium/ Dextrose 250 ml @ 12.24 mls/ hr CONT PRN IV PER PROTOCOL 08/13/21 18:15 08/13/21 18:51 Heparin Sodium (Porcine) (Heparin Sodium) 2,550 unit PRN Q6HRS PRN IV FOR UFH LEVEL LESS THAN 0.2 08/13/21 18:15 08/14/21 02:15 Fentanyl Citrate (Fentanyl 2ml Vial) 25 mcg PRN Q3HRS PRN IVP SEVERE PAIN 7-10 08/13/21 19:45 08/14/21 08:51 Nitroglycerin (Nitro-Bid Oint) 1 inch 1X ONCE TP 08/13/21 19:45 08/13/21 19:50 DC 08/13/21 20:27 Pantoprazole Sodium (Protonix) 40 mg DAILY07 PO 08/13/21 20:45 08/14/21 08:36 Nitroglycerin (Nitro-Bid Oint) 1 inch Q6HRS TP 08/14/21 00:00 08/14/21 08:45 Aspirin (Ecotrin) 325 mg DAILYWBKFT PO 08/14/21 08:00 08/14/21 08:36 Nicotine (Nicoderm Cq 21mg) 1 patch DAILY TD 08/14/21 09:00 08/14/21 08:40 ALLERGIES ALLERGIES: Coded Allergies: No Known Drug Allergies (Unverified , 03/09/15) ROS Review of System 14 point ROS evaluated with pertinent positives noted per HPI PHYSICAL EXAM General: Alert, Oriented X3, Cooperative, No acute distress HEENT: Atraumatic, Mucous membr. moist/pink Lungs: Clear to auscultation, Normal air movement Heart: Regular rate (SR), Normal S1, Normal S2, No murmurs Abdomen: Soft, No tenderness Extremities: No cyanosis, Other (2+ bilateral LE pitting edema) Skin: No breakdown, No significant lesion Neuro: Normal speech, Sensation intact Psych/Mental Status: Mental status NL, Mood NL MUSCULOSKELETAL: Full range of motion without pain VITALS/I&O VITALS/I&O: Vital Signs Date Time Temp Pulse Resp B/P (MAP) Pulse Ox O2 Delivery O2 Flow Rate FiO2 08/14/21 08:51 16 Room Air 08/14/21 08:45 77 99/57 08/14/21 07:20 97.7 94 97.7 I & O 08/13/21 08/13/21 08/14/21 15:00 23:00 07:00 Intake Total 0 ml Balance 0 ml LABS Lab: Laboratory Tests Test 08/13/21 17:25 08/13/21 19:29 08/14/21 00:50 08/14/21 07:30 White Blood Count 5.3 x10^3/uL (4.0-11.0) Red Blood Count 4.83 x10^6/uL (4.30-5.70) Hemoglobin 13.9 g/dL (13.0-17.5) Hematocrit 41.5 % (39.0-53.0) Mean Corpuscular Volume 86 fL (79-100) Mean Corpuscular Hemoglobin 29 pg (25-35) Mean Corpuscular Hemoglobin Concent 34 g/dL (31-37) Red Cell Distribution Width 13.9 % (11.5-14.5) Platelet Count 256 x10^3/uL (140-400) Neutrophils (%) (Auto) 53 % (31-73) Lymphocytes (%) (Auto) 31 % (24-48) Monocytes (%) (Auto) 11 % (0-9) H Eosinophils (%) (Auto) 4 % (0-3) H Basophils (%) (Auto) 1 % (0-3) Neutrophils # (Auto) 2.8 x10^3/uL (1.8-7.7) Lymphocytes # (Auto) 1.6 x10^3/uL (1.0-4.8) Monocytes # (Auto) 0.6 x10^3/uL (0.0-1.1) Eosinophils # (Auto) 0.2 x10^3/uL (0.0-0.7) Basophils # (Auto) 0.1 x10^3/uL (0.0-0.2) Prothrombin Time 11.8 SEC (11.7-14.0) Prothrombin Time INR 0.9 (0.8-1.1) Activated Partial Thromboplast Time 32 SEC (24-38) Sodium Level 139 mmol/L (136-145) Potassium Level 4.0 mmol/L (3.5-5.1) Chloride Level 103 mmol/L (98-107) Carbon Dioxide Level 29 mmol/L (21-32) Anion Gap 7 (6-14) Blood Urea Nitrogen 13 mg/dL (8-26) Creatinine 0.8 mg/dL (0.7-1.3) Estimated GFR (Cockcroft-Gault) 96.7 BUN/Creatinine Ratio 16 (6-20) Glucose Level 160 mg/dL (70-99) H Calcium Level 8.8 mg/dL (8.5-10.1) Magnesium Level 2.0 mg/dL (1.8-2.4) Total Bilirubin 0.2 mg/dL (0.2-1.0) Aspartate Amino Transferase (AST) 33 U/L (15-37) Alanine Aminotransferase (ALT) 56 U/L (16-63) Alkaline Phosphatase 155 U/L (46-116) H Troponin I High Sensitivity 36 ng/L (4-75) 455 ng/L (4-75) H 3981 ng/L (4-75) H CL-Kgt-O-Type Natriuretic Peptide 355 pg/mL (0-124) H Total Protein 7.7 g/dL (6.4-8.2) Albumin 3.5 g/dL (3.4-5.0) Albumin/Globulin Ratio 0.8 (1.0-1.7) L Lipase 66 U/L (73-393) L Heparin Anti-Xa Act, Unfractionated < 0.10 IU/mL (0.30-0.70) L SARS-CoV-2 Antigen (Rapid) Negative (NEGATIVE) Laboratory Tests 08/13/21 17:25 Laboratory Tests 08/13/21 17:25 ECHOCARDIOGRAM ECHOCARDIOGRAM <Conclusion> The left ventricle is normal size. The left ventricular systolic function is normal and the ejection fraction is within normal range. LV ejection fraction 50-55%. There is normal left ventricular wall thickness. Doppler and Color Flow revealed mild aortic regurgitation. There is no significant aortic valvular stenosis. Doppler and Color-flow revealed mild mitral regurgitation. Doppler and Color Flow revealed no tricuspid valve regurgitation noted. DATE: 03/26/21 [id number] HEART CATH HEART CATH Conclusion 1. Severe coronary artery disease as described above with patent stents in the right coronary artery, 40% in-stent restenosis in the left anterior descending artery and 95% thrombotic in-stent stenosis in the diagonal branch. The left circumflex artery showed chronic total occlusion in the midsegment. A long lower division of the diagonal branch showed chronic total occlusion proximally with distal reconstitution from left to left collaterals. 2. Successful PCI/drug-eluting stent placement to the left anterior descending artery and successful PTCA to the diagonal branch. Recommendations 1. Aspirin 325 mg daily for 1 month followed by 81 mg daily 2. Plavix 75 mg daily 3. Cardiovascular risk factor modification and cardiac rehabilitation referral DATE: 07/17/20 [id number] ASSESSMENT/PLAN ASSESSMENT/PLAN 1. NSTEMI 2. CAD: past PCI 3. HTN 4. HLP 5. Tobaccoism 6. Obesity Recommendations 1. LHC today with possible PCI, risks and benefits discussed and agreeable to proceed 2. Discussed smoking cessation and treatment compliance as he has not taken statin and plavix for over a yr 3. FLP, TSH 4. ASA, heparin drip ongoing,. Secondary prevention measures. SOHAM PRICE MD 08/15/21 0559: CARDIAC CONSULT ASSESSMENT/PLAN ASSESSMENT/PLAN Patient seen and examined. Agree with HEAD REFRIGERATING ENGINEER's assessment and plan Patient with history of CAD s/p multiple PCI/stents placement presently admitted with NSTEMI Plan for cardiac cath and possible PCI Continue heparin infusion per protocol Importance of compliance with meds and smoking cessation reemphasized Thank you for your consultation ERNESTINA NIELSEN APRN Aug 14, 2021 09:28 SOHAM PRICE MD Aug 15, 2021 05:59
[2021-08-14 10:01] LABS: HEMATOCRIT 38.4 % (39.0-53.0); HEMOGLOBIN 12.9 g/dL (13.0-17.5); RED BLOOD COUNT 4.5 x10^6/uL (4.30-5.70); RED CELL DISTRIBUTION WIDTH 14.1 % (11.5-14.5); WHITE BLOOD COUNT 6.9 x10^3/uL (4.0-11.0)
[2021-08-14 10:15] LABS: CALCIUM 8.5 mg/dL (8.5-10.1); CREATININE 0.8 mg/dL (0.7-1.3); GFR 96.7; POTASSIUM 4.3 mmol/L (3.5-5.1)
[2021-08-14] MEDS ORDERED: LIDOCAINE 1% PF 2 ML VIAL. ONE (10:16)
[2021-08-14] MEDS ORDERED: IODIXANOL 320 MG/ML 100 ML VIAL. ONE (10:16)
[2021-08-14] MEDS ORDERED: HEPARIN for IV BOLUS 10,000 UNIT/10 ML VIAL. ONE (10:17)
[2021-08-14] MEDS ORDERED: fentaNYL PF VIAL 100 MCG/2 ML VIAL ONE (10:17)
[2021-08-14] MEDS ORDERED: VERAPAMIL 5 MG/2 ML VIAL. ONE (10:17)
[2021-08-14] MEDS ORDERED: MIDAZOLAM HCL/PF 2 MG/2 ML VIAL. ONE (10:17)
[2021-08-14] MEDS ORDERED: NITROGLYCERIN 200 MCG/2 ML SYRINGE FOR CATH/VASC LAB. ONE (10:21)
[2021-08-14 10:30] LABS: CHOLESTEROL/HDL RATIO 4.5
[2021-08-14] MEDS ORDERED: IV NORMAL SALINE 1000ML BAG 1,000 ML IV ONE (10:30)
--- NOTE | 2021-08-14 11:00 | NUR ---
off the floor for cardiac cath
[2021-08-14] MEDS ORDERED: HEPARIN for IV BOLUS 10,000 UNIT/10 ML VIAL. IART ONE (11:15)
[2021-08-14] MEDS ORDERED: NITROGLYCERIN 200 MCG/2 ML SYRINGE FOR CATH/VASC LAB. IART ONE (11:15)
[2021-08-14] MEDS ORDERED: CONTRAST GIVEN. MC PRN (11:15)
[2021-08-14] MEDS ORDERED: VERAPAMIL 5 MG/2 ML VIAL. IART ONE (11:15)
[2021-08-14] MEDS ORDERED: IODIXANOL 320 MG/ML 100 ML VIAL. IART ONE (11:15)
[2021-08-14] MEDS ORDERED: MIDAZOLAM HCL/PF 2 MG/2 ML VIAL. IV ONE (11:15)
[2021-08-14] MEDS ORDERED: LIDOCAINE 1% PF 2 ML VIAL. INJ ONE (11:15)
[2021-08-14] MEDS ORDERED: fentaNYL PF VIAL 100 MCG/2 ML VIAL IV ONE (11:15)
--- NOTE | 2021-08-14 11:48 | NUR ---
returned from cardiac cath. he answers questions but is drowsy. has o2 on at 2l. IVF resumed. TR band to right wrist area. fingers warms to touch. no complaints at this time.
[2021-08-14] MEDS: IV 1/2 NORMAL SALINE 1,000 ML IV SCH (12:00)
--- NOTE | 2021-08-14 12:03 | CARD ---
MR#: [id number] Date of Study: 08/14/2021 Ordering Physician: SOHAM CRISTINA, Referring Physician: SOHAM CRISTINA Tech: RT Rosmery(R) APPROVED REPORT Technologist: Becki Pryor RT(R) Nurse: Karen Anne RN Procedure(s) performed: Left heart catheterization, selective coronary angiography and left ventricul ography via right transradial approach FLUORO TIME: 2.6 MIN DOSE: 65 Gycm2 Contrast: 94ml Mod Sedation: 30 MINS INDICATION The indication(s) include : non-STEMI . [facility] Clinical Frailty Scale [facility] Clinical Frailty Scale: Moderately Frail Heart Failure Heart Failure: No CASE TECHNIQUE IV conscious sedation was used throughout procedure with appropriate monitoring and was performed in the presence of a registered nurse who was an independent trained observer other than the physician p erforming the procedure. During this case, Fluoroscopy and low osmolar contrast were used for imaging . Specimen(s) Removed: No Estimated Blood loss: 15 cc's. PROCEDURE NARRATIVE After explaining the risks, benefits and alternative options, informed consent was obtained from sylvia ent. Patient was brought to the cardiac Music Educator and right wrist was prepped and draped in the usual fashion after confirming a positive modified Sunny's test. Arterial access was obtained in the righ t radial artery and a 6 Croatian sheath was inserted. 6 Croatian Phillip catheter was used to perform monse ective angiography of the left and right coronary arteries. 6 Croatian pigtail catheter was used to pe rform left ventriculography. Patient tolerated the procedure well. Hemostasis was achieved using TR band. There were no immediate complications. The following findings were noted. FINDINGS 1. Hemodynamics: Left ventricular end-diastolic pressure of 17 mmHg. No pullback gradient across th e aortic valve. 2. Left ventriculography: Hypokinesis of the mid anterolateral wall and the diaphragmatic wall with ejection fraction estimated at 45%. No significant mitral regurgitation seen. 3. Coronary angiography: a. The left main coronary artery arose from the left sinus of Valsalva, gave rise to the left anteri or descending and left circumflex arteries and showed 20% stenosis in the distal segment. b. The left anterior descending artery showed 80% in-stent restenosis in the mid segment. The first diagonal branch showed 100% in-stent occlusion in the proximal to mid segment. A proximal branch of this vessel showed 100% chronic total occlusion with very good distal reconstitution from left to le ft collaterals, described in prior cardiac catheterization. c. The left circumflex artery showed 70% stenosis in the proximal segment and 100% chronic total occ lusion in the midsegment with faint distal reconstitution from right to left collaterals. This was d escribed in prior cardiac catheterizations. d. The right coronary artery was a large and dominant vessel arising from the right sinus of Valsalv a that showed widely patent stent in the proximal to mid segment and a 90 to 95% in-stent restenosis in the mid to distal segment. The posterolateral branch showed patent stent in the proximal segment but just proximal to the stent, there was a 70% stenosis noted. Conclusion 1. Severe three-vessel coronary artery disease including significant in-stent restenosis involving t he left anterior descending and right coronary arteries 2. Hypokinesis of the mid anterolateral wall and the diaphragmatic wall with ejection fraction estim ated at 45% Recommendations Cardiothoracic surgery referral for possible coronary artery bypass surgery Signed by : Soham Cristina, Electronically Approved : 08/14/2021 12:02:57
--- NOTE | 2021-08-14 12:16 | PDOC ---
[facility] PROGRESS NOTE Date of Service DOS: DATE: 08/14/21 TIME: 12:13 Chief Complaint Chief Complaint Assessment/Plan A/P: Chest pain - with repeat EKG showing changes, will cont heparin GTT, trend troponins. consult cardiology. Smoking cessation emphasized. Will give nitropaste q6hrs for unstable angina. Protonix for GI PPX CAD - s/p cath x5 with 9 stents - high risk repeat AK. Pending cardiac cath today. HLD - statin HTN - metoprolol, nitropaste PVD - on ASA, plavix Smoker - counseled on cessation FEN - NPO PPX - heparin FULL CODE Dispo - inpatient CVC for unstable angina History of Present Illness History of Present Illness 66 year old male with PMHx CAD (s/p cath x5 with 9 stents), HLD, HTN, PVD, smoker who presents to ED c/o sub-sternal chest pain that radiates down both of his arms that began at 1645 while at rest and was continuous, He notes this was similar to prior AK. He experienced some discomfort at 1000 this morning but it resolved on its own. He does intermittently experience anginal pain but it is generally remitting without treatment 1-3 times per month. 08/14/2021 No acute events overnight. Patient seen examined bedside. Patient taken to the Operations And Maintenance Supervisor for cardiac cath. Rising troponins. Patient's chart, labs, images were reviewed and discussed with RN Vitals/I&O Vitals/I&O: Vital Signs Date Time Temp Pulse Resp B/P (MAP) Pulse Ox O2 Delivery O2 Flow Rate FiO2 08/14/21 11:36 86 16 99 Nasal Cannula 2.0 08/14/21 08:45 99/57 08/14/21 07:20 97.7 97.7 I & O 08/13/21 08/13/21 08/14/21 15:00 23:00 07:00 Intake Total 0 ml Balance 0 ml Physical Exam General: Alert, Oriented X3, Cooperative, No acute distress Heart: Regular rate (SR), Normal S1, Normal S2, No murmurs Lungs: Clear Abdomen: Soft, No tenderness Extremities: No cyanosis, Other (2+ bilateral LE pitting edema) Skin: No breakdown, No significant lesion Labs Labs: Laboratory Tests Test 08/13/21 17:25 08/13/21 19:29 08/14/21 00:50 08/14/21 07:30 White Blood Count 5.3 x10^3/uL (4.0-11.0) Red Blood Count 4.83 x10^6/uL (4.30-5.70) Hemoglobin 13.9 g/dL (13.0-17.5) Hematocrit 41.5 % (39.0-53.0) Mean Corpuscular Volume 86 fL (79-100) Mean Corpuscular Hemoglobin 29 pg (25-35) Mean Corpuscular Hemoglobin Concent 34 g/dL (31-37) Red Cell Distribution Width 13.9 % (11.5-14.5) Platelet Count 256 x10^3/uL (140-400) Neutrophils (%) (Auto) 53 % (31-73) Lymphocytes (%) (Auto) 31 % (24-48) Monocytes (%) (Auto) 11 % (0-9) Eosinophils (%) (Auto) 4 % (0-3) Basophils (%) (Auto) 1 % (0-3) Neutrophils # (Auto) 2.8 x10^3/uL (1.8-7.7) Lymphocytes # (Auto) 1.6 x10^3/uL (1.0-4.8) Monocytes # (Auto) 0.6 x10^3/uL (0.0-1.1) Eosinophils # (Auto) 0.2 x10^3/uL (0.0-0.7) Basophils # (Auto) 0.1 x10^3/uL (0.0-0.2) Prothrombin Time 11.8 SEC (11.7-14.0) Prothromb Time International Ratio 0.9 (0.8-1.1) Activated Partial Thromboplast Time 32 SEC (24-38) Sodium Level 139 mmol/L (136-145) Potassium Level 4.0 mmol/L (3.5-5.1) Chloride Level 103 mmol/L (98-107) Carbon Dioxide Level 29 mmol/L (21-32) Anion Gap 7 (6-14) Blood Urea Nitrogen 13 mg/dL (8-26) Creatinine 0.8 mg/dL (0.7-1.3) Estimated GFR (Cockcroft-Gault) 96.7 BUN/Creatinine Ratio 16 (6-20) Glucose Level 160 mg/dL (70-99) Calcium Level 8.8 mg/dL (8.5-10.1) Magnesium Level 2.0 mg/dL (1.8-2.4) Total Bilirubin 0.2 mg/dL (0.2-1.0) Aspartate Amino Transf (AST/SGOT) 33 U/L (15-37) Alanine Aminotransferase (ALT/SGPT) 56 U/L (16-63) Alkaline Phosphatase 155 U/L (46-116) Troponin I High Sensitivity 36 ng/L (4-75) 455 ng/L (4-75) 3981 ng/L (4-75) DH-Klc-S-Type Natriuretic Peptide 355 pg/mL (0-124) Total Protein 7.7 g/dL (6.4-8.2) Albumin 3.5 g/dL (3.4-5.0) Albumin/Globulin Ratio 0.8 (1.0-1.7) Lipase 66 U/L (73-393) Heparin Anti-Xa Act, Unfractionated < 0.10 IU/mL (0.30-0.70) SARS-CoV-2 Antigen (Rapid) Negative (NEGATIVE) Test 08/14/21 09:15 White Blood Count 6.9 x10^3/uL (4.0-11.0) Red Blood Count 4.50 x10^6/uL (4.30-5.70) Hemoglobin 12.9 g/dL (13.0-17.5) Hematocrit 38.4 % (39.0-53.0) Mean Corpuscular Volume 86 fL (79-100) Mean Corpuscular Hemoglobin 29 pg (25-35) Mean Corpuscular Hemoglobin Concent 34 g/dL (31-37) Red Cell Distribution Width 14.1 % (11.5-14.5) Platelet Count 227 x10^3/uL (140-400) Heparin Anti-Xa Act, Unfractionated 0.32 IU/mL (0.30-0.70) Sodium Level 141 mmol/L (136-145) Potassium Level 4.3 mmol/L (3.5-5.1) Chloride Level 105 mmol/L (98-107) Carbon Dioxide Level 27 mmol/L (21-32) Anion Gap 9 (6-14) Blood Urea Nitrogen 11 mg/dL (8-26) Creatinine 0.8 mg/dL (0.7-1.3) Estimated GFR (Cockcroft-Gault) 96.7 Glucose Level 97 mg/dL (70-99) Calcium Level 8.5 mg/dL (8.5-10.1) Triglycerides Level 161 mg/dL (0-150) Cholesterol Level 204 mg/dL (0-200) LDL Cholesterol, Calculated 127 mg/dL (0-100) VLDL Cholesterol, Calculated 32 mg/dL (0-40) Non-HDL Cholesterol Calculated 159 mg/dL (0-129) HDL Cholesterol 45 mg/dL (40-60) Cholesterol/HDL Ratio 4.5 Thyroid Stimulating Hormone (TSH) 1.723 uIU/mL (0.358-3.74) Assessment and Plan Assessmemt and Plan Problems Medical Problems: (1) Acute coronary syndrome Status: Acute (2) Chest pain Status: Acute Comment Review of Relevant I have reviewed the following items fauzia (where applicable) has been applied. Medications: Current Medications Medications (Trade) Dose Ordered Sig/Delma Route PRN Reason Start Time Stop Time Status Last Admin Dose Admin Nitroglycerin (Nitrostat) 0.4 mg PRN Q5MIN PRN SL CHEST PAIN 08/13/21 17:45 08/13/21 17:30 Heparin Sodium (Porcine) (Heparin Sodium) 4,000 unit 1X ONCE IV 08/13/21 18:15 08/13/21 18:16 DC 08/13/21 18:52 Heparin Sodium/ Dextrose 250 ml @ 12.24 mls/ hr CONT PRN IV PER PROTOCOL 08/13/21 18:15 08/13/21 18:51 Heparin Sodium (Porcine) (Heparin Sodium) 2,550 unit PRN Q6HRS PRN IV FOR UFH LEVEL LESS THAN 0.2 08/13/21 18:15 08/14/21 02:15 Fentanyl Citrate (Fentanyl 2ml Vial) 25 mcg PRN Q3HRS PRN IVP SEVERE PAIN 7-10 08/13/21 19:45 08/14/21 08:51 Nitroglycerin (Nitro-Bid Oint) 1 inch 1X ONCE TP 08/13/21 19:45 08/13/21 19:50 DC 08/13/21 20:27 Pantoprazole Sodium (Protonix) 40 mg DAILY07 PO 08/13/21 20:45 08/14/21 08:36 Nitroglycerin (Nitro-Bid Oint) 1 inch Q6HRS TP 08/14/21 00:00 08/14/21 08:45 Aspirin (Ecotrin) 325 mg DAILYWBKFT PO 08/14/21 08:00 08/14/21 08:36 Nicotine (Nicoderm Cq 21mg) 1 patch DAILY TD 08/14/21 09:00 08/14/21 08:40 Sodium Chloride 1,000 ml @ 100 mls/hr 1X ONCE IV 08/14/21 10:30 08/14/21 20:29 08/14/21 10:30 Nitroglycerin (Nitroglycerin) 200 mcg 1X ONCE IART 08/14/21 11:15 08/14/21 11:16 DC 08/14/21 11:15 Verapamil HCl (Verapamil) 2.5 mg 1X ONCE IART 08/14/21 11:15 08/14/21 11:16 DC 08/14/21 11:15 Heparin Sodium (Porcine) (Heparin Sodium) 2,500 unit 1X ONCE IART 08/14/21 11:15 08/14/21 11:16 DC 08/14/21 11:15 Heparin Sodium/ Sodium Chloride (HEPARIN for ARTERIAL LINE FLUSH) 1,000 unit 1X ONCE IART 08/14/21 11:15 08/14/21 11:16 DC 08/14/21 11:15 Heparin Sodium/ Sodium Chloride (HEPARIN for ARTERIAL LINE FLUSH) 1,000 unit 1X ONCE IART 08/14/21 11:15 08/14/21 11:16 DC 08/14/21 11:15 Midazolam HCl (Versed) 2 mg 1X ONCE IV 08/14/21 11:15 08/14/21 11:16 DC 08/14/21 11:10 Fentanyl Citrate (Fentanyl 2ml Vial) 100 mcg 1X ONCE IV 08/14/21 11:15 08/14/21 11:16 DC 08/14/21 11:10 Iodixanol (Visipaque 320) 100 ml 1X ONCE IART 08/14/21 11:15 08/14/21 11:16 DC 08/14/21 11:30 Lidocaine HCl (Xylocaine-Mpf 1% 2ml Vial) 2 ml 1X ONCE INJ 08/14/21 11:15 08/14/21 11:16 DC 08/14/21 11:14 Justifications for Admission Other Justification JULIANA NGUYEN MD Aug 14, 2021 12:16
--- NOTE | 2021-08-14 12:53 | NUR ---
SS following for discharge planning. SS reviewed pt chart and discussed with pt RN. Pt is from home with spouse and is currently on room air. COVID19 negative on rapid test. Cardiology consulted. Pt had heart cath today. SS will continue to follow for discharge planning. Addendum: 08/14/21 at 1630 by MILI MONTESINOS SS Per Cardiology, pt needing transfer for heart surgery. Pt accepted at [facility] per [facility] transfer center, ; fax [phone]. Accepting physician Dr[address] Walton. Currently awaiting bed availability at this time. SS and Cardiology discussed with pt and family in room. Pt and family adamantly refusing transfer to [facility]. Pt and family requested transfers to , [facility], and [facility]. All hospitals contacted and pt denied for transfer. SS and Cardiology revisited with pt and family and pt and family continue to refuse transfer to [facility]. Dr. Cristina contacting pt and family to discuss. Pt's RN notified.
[2021-08-14] MEDS ORDERED: PERFLUTREN PROTEIN-A MICROSPHR 0.22 MG/ML 3 ML VIAL. IV ONE ×3 (12:58→13:45)
--- NOTE | 2021-08-14 13:11 | EKG ---
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
--- NOTE | 2021-08-14 13:30 | NUR ---
attempted to remove 2 cc of air from TR band. started oozing from site. He is getting the carotid doppler, echo and the 12 lead ekg are completed. again uninstructed to not move his right hand. reinserted 2 cc air and and extra 2 ccs as instructed. VSS . given sandwich drink for lunch ; tolerated well. states that his shoulder is uncomfortable andwas given fentanyl.
--- NOTE | 2021-08-14 13:53 | RAD ---
EXAMINATION: US VENOUS MAPPING BILAT INDICATION: Reason: pre-op CABG / Spl. Instructions: / History: COMPARISON: None TECHNIQUE: Grayscale, color and spectral Doppler evaluation of the bilateral lower extremity venous s ystem(s) was performed for venous mapping. FINDINGS: RIGHT: DEEP VEINS: GREAT SAPHENOUS VEIN FLOW: Patent RIGHT GREAT SAPHENOUS VEIN DIAMETERS: 0.7 cm PROXIMAL THIGH: 0.6 cm MID THIGH: 0.34 cm DISTAL THIGH: 0.24 cm PROXIMAL CALF: 0.3 cm MID CALF: 0.24 cm DISTAL CALF: 0.28 cm LEFT: DEEP VEINS: GREAT SAPHENOUS VEIN FLOW: Patent LEFT GREAT SAPHENOUS VEIN DIAMETERS: 0.67 cm PROXIMAL THIGH: 0.6 cm MID THIGH: 0.43 cm DISTAL THIGH: 0.4 cm PROXIMAL CALF: 0.32cm MID CALF: 0.26cm DISTAL CALF: 0.33cm IMPRESSION: Bilateral greater saphenous and superficial saphenous veins are patent and free of clot. Measurements of bilateral lower extremity greater saphenous veins as above. Electronically signed by: Johnathan Louie DO (08/14/2021 1:50 PM) [id number]
--- NOTE | 2021-08-14 14:01 | RAD ---
EXAM: Bilateral carotid duplex with waveform analysis. CLINICAL HISTORY: Reason: pre-op eval / Spl. Instructions: / History: . TECHNIQUE: Longitudinal and transverse sonographic images of the bilateral carotid arteries was perfo rmed utilizing grayscale, color and spectral Doppler techniques. COMPARISON: None FINDINGS: Right Carotid: Moderate plaque and wall thickening at the carotid bulb with no hemodynamically signif icant stenosis Left Carotid: Moderate plaque and wall thickening at the carotid bulb with no hemodynamically signifi cant stenosis Vertebrals: Antegrade flow bilaterally. Right: PSV CCA (cm/s): 77 PSV ICA (cm/s): 73 EDV ICA (cm/s): 27 PSV ECA (cm/s): 131 ICA/CCA Ratio: 0.75 Left: PSV CCA (cm/s): 95 PSV ICA (cm/s): 82 EDV ICA (cm/s): 31 PSV ECA (cm/s): 120 ICA/CCA Ratio: 0.78 IMPRESSION: Moderate smooth plaque at the carotid bulbs with no evidence of hemodynamically significant stenosis of bilateral internal carotid arteries Consensus Panel Mckinney-scale and Doppler US Criteria for Diagnosis of ICA Stenosis Degree of Stenosis (%) ICA PSV (Cm/sec) Plaque Estimate (%)* Normal <125 None <50 <125 <50 50-69 125-230 >50 >70 but < near occlusion >230 >50 Near occlusion High, low, or undetectable Visible Total occlusion Undetectable Visible, no detectable lumen *Plaque estimate (diameter reduction) with mckinney-scale and color Doppler US Degree of Stenosis (%) ICA/CCA PSV Ratio ICA EDV (cm/sec) Normal <2.0 <40 <50 <2.0 <40 50-69 2.0-4.0 40-100 >70 but < near occlusion >4.0 >100 Near occlusion Variable Variable Total occlusion Not applicable Not applicable Electronically signed by: Johnathan Louie DO (08/14/2021 1:58 PM) [id number]
[2021-08-14] MEDS: METOPROLOL TART IMMED RELEASE 25 MG TABLET. PO SCH ×2 (14:24→20:44)
--- NOTE | 2021-08-14 15:00 | NUR ---
removed 2cc air from TR band and tolerated well. heparin continues without problems.
[2021-08-14] MEDS: HEPARIN 25,000UTS/250ML PREMIX 250 ML IV PRN (15:28)
--- NOTE | 2021-08-14 17:00 | NUR ---
spoke with Fredo and his regarding possible to transfer to [facility] for poss CABG. At this time; he does not want to transfer. supports his decision. He was informed that [facility] is only taking time sensitive cases, [facility]'s and [facility] are on diversion and not accepting patients. spoke with Cherie in the transfer center for [facility] and if he decides to transfer to call [phone]
--- NOTE | 2021-08-14 17:15 | CARD ---
MR#: [id number] Date of Study: 08/14/2021 Ordering Physician: RUBEN MORA, Referring Physician: RUBEN MORA, Tech: Daiana Bustillo [facility] APPROVED REPORT EXAM: Two-dimensional and M-mode echocardiogram with Doppler and color Doppler. Other Information Quality : Technically LimitedHR: 79bpm Rhythm : NSR INDICATION Cardiac Disease: CAD Echo Enhancing Agent Indication: Endocardial border delineation Agent/Amount Used: Optison 2mL RISK FACTORS Hypertension Obesity Hyperlipidemia 2D DIMENSIONS RVDd3.5 (2.9-3.5cm)Left Atrium(2D)3.5 (1.6-4.0cm) IVSd1.0 (0.7-1.1cm)LVDd3.1 (3.9-5.9cm) PWd1.2 (0.7-1.1cm)LVDs2.0 (2.5-4.0cm) FS (%) 35.3 %SV25.0 ml LVEF(%)66.2 (>50%) Aortic Valve AoV Peak Sean.155.1cm/sAoV VTI32.4cm AO Peak GR.9.6mmHgLVOT Peak Sean.124.3cm/s AO Mean GR.5mmHg Mitral Valve MV E Qfzpylam19.5cm/sMV DECEL [id number] MV A Eqavqvvn054.1cm/sE/A Ratio0.7 Pulmonary Valve PV Peak Nredqtuf295.0cm/s LEFT VENTRICLE The left ventricle is normal size. There is borderline concentric left ventricular hypertrophy. Poste robasal wall hypokinesis with ejection fraction estimated at 50-55%. RIGHT VENTRICLE The right ventricle is normal size. There is normal right ventricular wall thickness. The right ventr icular systolic function is normal. ATRIA The left atrium size is normal. The right atrium size is normal. The interatrial septum is intact wit h no evidence for an atrial septal defect or patent foramen ovale as noted on 2-D or Doppler imaging. AORTIC VALVE The aortic valve is normal in structure and function. Doppler and Color Flow revealed trace aortic re gurgitation. There is no significant aortic valvular stenosis. MITRAL VALVE The mitral valve is normal in structure and function. There is no evidence of mitral valve prolapse. There is no mitral valve stenosis. Doppler and Color-flow revealed mild mitral regurgitation. TRICUSPID VALVE The tricuspid valve is normal in structure and function. Doppler and Color Flow revealed no tricuspid valve regurgitation noted. There is no tricuspid valve stenosis. PULMONIC VALVE The pulmonary valve is normal in structure and function. Doppler and Color Flow revealed no pulmonic valvular regurgitation. GREAT VESSELS The aortic root is normal in size. The ascending aorta is normal in size. The IVC is normal in size a nd collapses >50% with inspiration. PERICARDIAL EFFUSION There is no evidence of significant pericardial effusion. Critical Notification Critical Value: No <Conclusion> Posterobasal wall hypokinesis with ejection fraction estimated at 50-55%. Doppler and Color-flow revealed mild mitral regurgitation. There is no evidence of significant pericardial effusion. Signed by : Eleno Cristina, Electronically Approved : 08/14/2021 17:15:04
--- NOTE | 2021-08-14 17:30 | NUR ---
the last air was removed from TR band. he is sitting on side of bed visiting with family.
--- NOTE | 2021-08-14 18:30 | NUR ---
in bathroom. unable to remove TR band; passed to next shift. Heparin continues as same rate. last ufh was 0.35--call for no change in rate. next UHF p.laced for 0500 in am.
[2021-08-14] MEDS: ATORVASTATIN CALCIUM 40 MG TABLET. PO SCH (20:44)
--- NOTE | 2021-08-14 21:00 | EKG ---
[facility] [address] [place] [address] Test Date: 2021-08-13 Test Time: 17:24:05 Pat Name: MICHAEL MEZA Department: Room: [facility] Gender: M Contact Center Specialist: : [id number] Requested By: ANGELIA FREDERICK Order Number: [id number] Reading MD: Eleno Cristina Measurements Intervals Kiana Rate: 95 P: 90 RI: 152 QRS: -38 QRSD: 108 T: 74 QT: 340 QTc: 430 Interpretive Statements SINUS RHYTHM ATRIAL PREMATURE COMPLEX(ES) ABNORMAL LEFT AXIS DEVIATION LEFT ANTERIOR FASCICULAR BLOCK LVH WITH REPOLARIZATION ABNORMALITY Electronically Signed On 08-16-2021 15:16:30 POWER SHOVEL ENGINEER by Eleno Cristina
[2021-08-15 01:09] LABS: HEMOGLOBIN A1C 6.2 % (4.8-5.6)
[2021-08-15] MEDS: NITROGLYCERIN OINT 1 GM PACKET. TP SCH ×3 (02:00→14:00)
[2021-08-15 03:30] VITALS: BP 140/81
[2021-08-15] MEDS: IV 1/2 NORMAL SALINE 1,000 ML IV SCH (03:34)
[2021-08-15 07:00] VITALS: BP 127/80
[2021-08-15] MEDS: PANTOPRAZOLE 40 MG TABLET.DR. PO SCH (08:15)
[2021-08-15] MEDS: METOPROLOL TART IMMED RELEASE 25 MG TABLET. PO SCH (08:15)
[2021-08-15] MEDS: ASPIRIN ENTERIC COATED 325 MG TABLET.DR. PO SCH (08:15)
[2021-08-15] MEDS: NICOTINE 21MG PATCH. TD SCH (08:16)
--- NOTE | 2021-08-15 09:39 | PDOC ---
ERNESTINA NIELSEN DIRECTOR MEDICAL ECONOMICS 08/15/21 0939: CARDIO Progress Notes Date and Time Date of Service 08/15/2021 Time of Evaluation 0910 Subjective Subjective: No Chest Pain, No shortness of breath, No Palpitations Vitals Vitals Vital Signs Date Time Temp Pulse Resp B/P (MAP) Pulse Ox O2 Delivery O2 Flow Rate FiO2 08/15/21 08:21 94 140/81 08/15/21 03:30 97.5 20 96 Room Air 97.5 08/14/21 20:29 98.0 Weight Weight [ ] Input and Output Intake and Output Intake and Output 08/15/21 07:00 Intake Total 840 ml Output Total 1300 ml Balance -460 ml Intake Oral 840 ml Output Urine Total 1300 ml Laboratory Labs Laboratory Tests Test 08/14/21 16:36 08/15/21 05:25 Heparin Anti-Xa Act, Unfractionated 0.35 IU/mL (0.30-0.70) 0.25 IU/mL (0.30-0.70) Physical Exam HEENT: Neck Supple W Full Motion Chest: Symmetric LUNGS: Clear to Auscultation Heart: S1S2, RRR (SR), no murmurs Abdomen: Soft N/T Extremities: No Calf Tenderness, Other (2+ bilateral LE pitting edema) Neurology: alert, oriented, follow commands Assessment Assessment 1. NSTEMI: LHC revealed 3VD with significnat ISR to RCA and LAD 2. CAD: past PCI 3. HTN: controlled 4. HLP: not on goal. 5. Tobaccoism 6. Obesity Recommendations 1. Discussed significnatly with pt and agreed to transfer to [facility] for CABG 2. Smoking cessation 3. Discussed treatment adherence. Secondary prevention measures 4. ASA and continue heparin Justicifation of Admission Dx: Justifications for Admission: Justification of Admission Dx: Yes SOHAM PRICE MD 08/15/21 2141: CARDIO Progress Notes Assessment Assessment Patient seen and examined. Agree with SENIOR RESEARCH FELLOW's assessment and plan NSTEMI with cath yesterday showing 3v CAD including instent restenoses in RCAS and LAD Plan for transfer to [facility] today for CABG tomorrow Continue current medical regimen ERNESTINA NIELSEN APRN Aug 15, 2021 09:39 SOHAM PRICE MD Aug 15, 2021 21:41
--- NOTE | 2021-08-15 11:19 | SNU/HH DC ---
DISCHARGE ORDERS DISCHARGE INFORMATION: DISCHARGE DATE: Aug 15, 2021 FINAL DIAGNOSIS Problems Medical Problems: (1) Acute coronary syndrome Status: Acute (2) Chest pain Status: Acute CONDITION ON DISCHARGE: Stable CODE STATUS: Code Status: Full POST DISCHARGE ORDERS: ACTIVITY ORDERS: Resume previous activity WEIGHT BEARING STATUS: As tolerated WOUND/INCISION CARE: No wound care needed CHECKS AFTER DISCHARGE: CHECKS AFTER DISCHARGE: Check blood press - daily FOLLOW-UP: PHYSICIAN FOLLOW-UP: CT surgery at [facility] ADDITIONAL FOLLOW-UP: PCP after hospital discharge and cardiology after hospital discharge LAB ORDERS FOR FOLLOW-UP: CBC, CMP TREATMENT/EQUIPMENT ORDERS: ADAPTIVE EQUIPMENT NEEDED: None Physical Therapy For: Evalulation/Treatment Occupational Therapy For: Evaluation/Treatment DISCHARGE MEDICATIONS: Home Meds Active Scripts Clopidogrel Bisulfate (CLOPIDOGREL) 75 Mg Tablet, 75 MG PO DAILYWBKFT for CAD, #30 TAB 9 Refills Prov:SOLEDAD MATHIAS MD 07/18/20 Aspirin (ASPIRIN EC) 81 Mg Tablet.dr, 81 MG PO DAILYWBKFT for CAD for 90 Days, #90 TAB.SR 3 Refills Prov:GENA LUNA MD 07/05/20 Reported Medications Famotidine (FAMOTIDINE) 40 Mg Tablet, 40 MG PO PRN DAILY PRN for INDIGESTION, TAB 03/24/21 Calcium Carbonate (TUMS) 200 Mg Tab.chew, 200 MG PO PRN 1-2XD PRN for IN DIGESTION, TAB.CHEW 03/24/21 Atorvastatin Calcium (ATORVASTATIN CALCIUM) 40 Mg Tablet, 1 TAB PO DAILY for c holsterol 07/04/20 Metoprolol Tartrate (METOPROLOL TARTRATE) 25 Mg Tablet, 1 TAB PO BID for htn 07/04/20 JULIANA NGUYEN MD Aug 15, 2021 11:19
[2021-08-15] MEDS: HEPARIN 25,000UTS/250ML PREMIX 250 ML IV PRN (11:25)
--- NOTE | 2021-08-15 11:48 | NUR ---
SS following up with discharge planning. SS reviewed pt chart and discussed with pt RN. Pt is currently on room air. Pt needing transfer for Cardiothoracic surgery. Cardiology met with pt this morning and pt now agreeable to [facility]. [facility] Transfer Center notified. Accepting physician, Dr. Walton. Currently awaiting bed assignment and report number at this time. Pt's RN notified. Packet, ambulance form, and transfer form on the chart. SS will continue to follow for discharge planning. Addendum: 08/15/21 at 1439 by MILI MONTESINOS SS SS received call from [facility] transfer [place]. Bed# 2305 provided for [facility]. Report# [phone]. RN, Nicole. Pt will discharge and transfer to [facility] via [facility] ambulance first available. Pt and pt's RN notified.
[2021-08-15] MEDS: fentaNYL PF VIAL 100 MCG/2 ML VIAL IVP PRN (13:37)
[2021-08-15 14:00] VITALS: BP 140/81
--- NOTE | 2021-08-15 15:31 | NUR ---
Discharge Note: MICHAEL MEZA [address] Discharge instructions and discharge home medications reviewed with Other facility and a copy given. All questions have been answered and understanding verbalized. Pt sent to [facility] with two IV sites intace. Right hand IV has heparin running via the rate flow regulator. Report given to EMS upon arrival as well as Nicole PINEDA from [facility]. Pt in stable condition at time of DC.
--- NOTE | 2021-08-17 18:58 | PDOC3 ---
[facility]-Discharge Summary Date of Admission: Date of Admission: Aug 13, 2021 Date of Discharge: Date of Discharge: Aug 15, 2021 Discharge Diagnosis: Discharge Diagnosis: Chest pain - with repeat EKG showing changes, will cont heparin GTT, trend troponins. consult cardiology. Smoking cessation emphasized. Will give nitropaste q6hrs for unstable angina. Protonix for GI PPX CAD - s/p cath x5 with 9 stents - high risk repeat IL. Pending cardiac cath today. HLD - statin HTN - metoprolol, nitropaste PVD - on ASA, plavix Smoker - counseled on cessation Consults: Consults: per cardiology: Assessment 1. NSTEMI: LHC revealed 3VD with significnat ISR to RCA and LAD 2. CAD: past PCI 3. HTN: controlled 4. HLP: not on goal. 5. Tobaccoism 6. Obesity Recommendations 1. Discussed significnatly with pt and agreed to transfer to [facility] for CABG 2. Smoking cessation 3. Discussed treatment adherence. Secondary prevention measures 4. ASA and continue heparin Justicifation of Admission Dx: Justifications for Admission: Justification of Admission Dx: Yes SOHAM PRICE MD 08/15/21 2141: CARDIO Progress Notes Assessment Assessment Patient seen and examined. Agree with CASHIER CREDIT's assessment and plan NSTEMI with cath yesterday showing 3v CAD including instent restenoses in RCAS and LAD Plan for transfer to [facility] today for CABG tomorrow Continue current medical regimen Hospital Course: Hospital Course: 66 year old male with PMHx CAD (s/p cath x5 with 9 stents), HLD, HTN, PVD, smoker who presents to ED c/o sub-sternal chest pain that radiates down both of his arms that began at 1645 while at rest and was continuous, He notes this was similar to prior IL. He experienced some discomfort at 1000 this morning but it resolved on its own. He does intermittently experience anginal pain but it is generally remitting without treatment 1-3 times per month. 08/14/2021 No acute events overnight. Patient seen examined bedside. Patient taken to the Center Manager for cardiac cath. Rising troponins. Patient's chart, labs, images were reviewed and discussed with RN By day of discharge, pt was clinically stable and ready for discharge. Rest of hospital course was uneventful Disposition: Disposition/Orders: D/C to Home Activity: Activity: Resume previous activity Diet: Diet: Cardiac Medications: Home Meds Active Scripts Aspirin (ASPIRIN EC) 81 Mg Tablet.dr, 81 MG PO DAILYWBKFT for CAD for 90 Days, #90 TAB.SR 3 Refills Prov:GENA LUNA MD 07/05/20 Reported Medications Famotidine (FAMOTIDINE) 40 Mg Tablet, 40 MG PO PRN DAILY PRN for INDIGESTION, TAB 03/24/21 Calcium Carbonate (TUMS) 200 Mg Tab.chew, 200 MG PO PRN 1-2XD PRN for INDIGESTION, TAB.CHEW 03/24/21 Atorvastatin Calcium (ATORVASTATIN CALCIUM) 40 Mg Tablet, 1 TAB PO DAILY for cholsterol 07/04/20 Metoprolol Tartrate (METOPROLOL TARTRATE) 25 Mg Tablet, 1 TAB PO BID for htn 07/04/20 Discontinued Scripts Clopidogrel Bisulfate (CLOPIDOGREL) 75 Mg Tablet, 75 MG PO DAILYWBKFT for CAD, #30 TAB 9 Refills Prov:SOLEDAD MATHIAS MD 07/18/20 Scheduled Aspirin (Aspirin Ec), 81 MG PO DAILYWBKFT Atorvastatin Calcium (Atorvastatin Calcium), 1 TAB PO DAILY, (Reported) Metoprolol Tartrate (Metoprolol Tartrate), 1 TAB PO BID, (Reported) Scheduled PRN Calcium Carbonate (Tums), 200 MG PO PRN 1-2XD PRN for INDIGESTION, (Reported) Famotidine (Famotidine), 40 MG PO PRN DAILY PRN for INDIGESTION, (Reported) Discontinued Medications Clopidogrel Bisulfate (Clopidogrel), 75 MG PO DAILYWBKFT Total Time: Total Time: Total time spent was 32 minutes in preparing scripts and discharge planning with SW and RN. Patient seen and examined on day of Discharge. Justicifation of Admission Dx: Justifications for Admission: Justification of Admission Dx: Yes JULIANA NGUYEN MD Aug 17, 2021 18:58
== END 2021-08-15 15:35 | disposition short-term general hospital (02) | DRG 281 ==
LOC: ER 17:19 → 6 SOUTH 18:18
PROVIDERS: ADMIT Internal Medicine; ATTEND Internal Medicine
PROC: 4A023N7 Measurement of Cardiac Sampling and Pressure, Left Heart, Percutaneous Approach (ICD-10-PCS; principal; 2021-08-14)
PROC: B2111ZZ Fluoroscopy of Multiple Coronary Arteries using Low Osmolar Contrast (ICD-10-PCS; 2021-08-14)
PROC: B2151ZZ Fluoroscopy of Left Heart using Low Osmolar Contrast (ICD-10-PCS; 2021-08-14)
DX: I21.4 Non-ST elevation (NSTEMI) myocardial infarction (principal); T82.855A Stenosis of coronary artery stent, initial encounter; I25.110 Atherosclerotic heart disease of native coronary artery with unstable angina pectoris; E66.9 Obesity, unspecified; E78.00 Pure hypercholesterolemia, unspecified; E78.5 Hyperlipidemia, unspecified; F17.210 Nicotine dependence, cigarettes, uncomplicated; I11.0 Hypertensive heart disease with heart failure; I25.2 Old myocardial infarction; I50.9 Heart failure, unspecified; I73.9 Peripheral vascular disease, unspecified; Z82.49 Family history of ischemic heart disease and other diseases of the circulatory system; Z95.5 Presence of coronary angioplasty implant and graft; K21.9 Gastro-esophageal reflux disease without esophagitis; M19.90 Unspecified osteoarthritis, unspecified site; Z68.37 Body mass index [BMI] 37.0-37.9, adult; Z71.6 Tobacco abuse counseling; Z20.822 Contact with and (suspected) exposure to COVID-19
CPT/HCPCS: 93458; 96374; 99285; C8929; 36415; 71045; 80048; 80053; 80061; 83036; 83690; 83735; 83880; 84443; 84484; 85025; 85027; 85520; 85610; 85730; 87426; 93005; 93880; 93970; 99152; 99153; C1894; J1644; J2250; J3010; J3490; J7030; Q9956; Q9967; G0378